=== PATIENT | male | born 1980 | race Caucasian/White ===

== ENCOUNTER 2016-07-19 10:10 | Observation (INO) | payer OTHER ==
--- NOTE | 2016-07-19 10:24 | EDPHY ---
[id number] Exam Limitations: No limitations - Personal History Current Tetanus/Diphtheria Vaccine: Unsure Current Tetanus Diphtheria and Acellular Pertussis (TDAP): Unsure - Medical/Surgical History Hx Asthma: No Hx Chronic Respiratory Disease: No Hx Diabetes: No Hx Cardiac Disease: No Hx Renal Disease: No Hx Cirrhosis: No Hx Alcoholism: No Hx HIV/AIDS: No Hx Splenectomy or Spleen Trauma: No Other PMH: denies. finished antbx for uri one week ago - Social History Smoking Status: Never smoked Time Seen by Provider: 07/19/16 10:16 HPI/ROS: CHIEF COMPLAINT: cough, shortness of breath HISTORY OF PRESENT ILLNESS: 36-year-old male presents to the emergency department sent by his primary care doctor for oxygen saturations of 88%. Patient has had a cold with cough for 6 weeks. He was started on an albuterol inhaler 6 weeks ago, did not improve his symptoms though he was on a 10 day course of cefdinir which he finished 5 days ago. Patient reports that this did not either, he reports his cough is gone from a dry cough to a moist cough, he reports nasal congestion, mild sore throat and ear pain. Patient reports shortness of breath with exertion. Intermittent subjective fevers and chills at the beginning of this illness, he reports no fevers recently. He denies nausea, vomiting or diarrhea. REVIEW OF SYSTEMS: A comprehensive 10 point review of systems is otherwise negative aside from elements mentioned in the history of present illness. (Kerry Melendrez) - Physical Exam Exam: Physical Exam Gen: Alert and Oriented, NAD HEENT: PERRL, moist mucous membranes, bilateral TMs normal, nasal turbinates with erythema, posterior pharynx with mild erythema, no exudate NECK: no meningismus CV: regular rate and regular rhythm PULM: CTAB, no wheezes ABDOMEN: soft, non tender to palpation, BS present BACK: No CVA tenderness NEURO: Neurologically grossly intact EXTREMITIES: normal appearing SKIN: no rash or break in skin on exposed skin PSYCH: answers questions appropriately. (Kerry Melendrez) Constitutional: Initial Vital Signs Temperature (C) 36.9 C 07/19/16 10:15 Heart Rate 81 07/19/16 10:15 Respiratory Rate 16 07/19/16 10:15 Blood Pressure 136/80 H 07/19/16 10:15 O2 Sat (%) 91 L 07/19/16 10:15 O2 Delivery Mode Room Air Allergies/Adverse Reactions: No Known Allergies Allergy (Unverified 07/19/16 10:15) Home Medications: Medication Instructions Recorded NK [No Known Home Meds] 07/19/16 Medical Decision Making - Diagnostics Imaging: Chest x-ray independently reviewed by me- Impression: Mild peribronchial thickening suggesting airways disease/ bronchitis. Dictated By: Kenan Avelar MD (Kerry Melendrez) ED Course/Re-evaluation: 36-year-old male presents with a cough x6 weeks, finished a 10 day course of cefdinir 5 days ago[address] Seen by Dr. Diaz today with oxygen saturations of 88% , she sent him here for a further workup. Chest x-ray and influenza obtained, chest x-ray shows a bronchitis with mild peribronchial thickening, no evidence of infiltrates, influenza is negative. Patient is given a duo nebulizer treatment and 60 mg of prednisone p.o. plan to send him home with a prednisone and Zithromax. 1245pm- ambulatory room air oxygen saturations 87 88%. Patient admitted to the hospitalist for hypoxemia. D-dimer ordered though I think this is unlikely a pulmonary embolism. (Kerry Melendrez) Differential Diagnosis: Diagnosis considered but not limited to bronchitis, pneumonia, COPD, pulmonary embolism, other viral illness. (Kerry Melendrez) Other Provider: This patient was evaluated and managed by the nurse practitioner. I have reviewed the chart and agree with the findings and plan of care as documented. ( Destiney Severino) - Data Points Laboratory Results: 07/19/16 10:52 Influenza Typ A,B (DFA) NEGATIVE FOR FLU (NEGATIVE) Medications Given: Discontinued Medications Albuterol/Ipratropium (Duoneb) 3 ml IH EDNOW ONE Stop: 07/19/16 11:43 Last Admin: 07/19/16 12:00 Dose: 3 ml Prednisone (Prednisone) 60 mg PO EDNOW ONE Stop: 07/19/16 12:07 Last Admin: 07/19/16 12:10 Dose: 60 mg Departure - Departure Disposition: [facility] Inpatient Acute Clinical Impression: Hypoxemia Condition: Good
--- NOTE | 2016-07-19 10:42 | DX ---
PA and Lateral Chest History: Shortness of breath and productive cough. Comparison: None available. Findings: There is mild peribronchial thickening without focal consolidation. There is no pneumothora x or pleural effusion. The heart and pulmonary vasculature are normal. The bones are normal. Impression: Mild peribronchial thickening suggesting airways disease/bronchitis.
[2016-07-19] MEDS ORDERED: IPRATROPIUM/ALBUTEROL 3 ML DEYVIAL IH ONE (11:42)
[2016-07-19] MEDS ORDERED: predniSONE 20 MG TAB PO ONE (12:06)
[2016-07-19] MEDS ORDERED: ACETAMINOPHEN 325 MG TAB PO PRN (13:37)
[2016-07-19] MEDS ORDERED: ONDANSETRON DISINTEGRATING 4 MG TAB PO PRN (13:37)
[2016-07-19] MEDS ORDERED: TEMAZEPAM 15 MG CAP PO PRN (13:37)
[2016-07-19] MEDS ORDERED: ONDANSETRON 4 MG/2 ML VIAL IVP PRN (13:37)
[2016-07-19] MEDS ORDERED: IPRATROPIUM/ALBUTEROL 3 ML DEYVIAL IH PRN (13:40)
[2016-07-19] MEDS ORDERED: methylPREDNISolone SOD SUCC 125 MG/2 ML VIAL IVP ONE ×2 (15:15→18:00)
[2016-07-19 15:27] LABS: % IMMATURE GRANULYOCYTES 0.4 % (0.0-1.1); ABSOLUTE IMMATURE GRANULOCYTES 0.02 10^3/uL (0.00-0.10); ADD DIFF? NO; ADD MORPH? NO; ADD SCAN? NO; ATYPICAL LYMPHOCYTE FLAG 60 (0-99); FRAGMENT RBC FLAG 0 (0-99); HEMATOCRIT 49.1 % (40.0-51.0); LEFT SHIFT FLG 10 (0-99); LIPEMIA HEMOLYSIS FLAG 90 (0-99); MEAN CELL HEMOGLOBIN 30.5 pg (27.9-34.1); MEAN CELL HEMOGLOBIN CONCENTR. 34.6 g/dL (32.4-36.7); MEAN PLATELET VOLUME 10.2 fL (8.7-11.7); PLATELET CLUMPS FLAG 10 (0-99); PLATELET COUNT 243 10^3/uL (150-400); RED BLOOD CELL COUNT 5.58 10^6/uL (4.40-6.38); RED CELL DISTRIBUTION WIDTH 11.8 % (11.5-15.2)
--- NOTE | 2016-07-19 16:04 | GHP ---
[f rep st] HISTORY AND PHYSICAL DATE OF ADMISSION: 07/19/2016 CHIEF COMPLAINT: Shortness of breath and cough. HISTORY OF PRESENT ILLNESS: The patient is a 36-year-old male with no significant past medical histo ry who is being admitted for hypoxia, shortness of breath, and cough. He reports onset of symptoms 6 weeks ago. He developed a cough and URI symptoms at that time. At first, he had noted a nonproduct caren cough, but most recently this has become productive. He initially had some fever and chills, but this has resolved. He denies any rhinorrhea, dysuria, hematochezia, melena, chest pain, palpitation s, or lightheadedness. REVIEW OF SYSTEMS: As per HPI. A complete 10-point review of systems was obtained and is negative e xcept for what is dictated. PAST MEDICAL HISTORY: Unremarkable. SURGICAL HISTORY: Unremarkable. SOCIAL HISTORY: He was a never smoker. He denies any significant alcohol intake. 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 Up until 6 weeks ago, he was exercising regularly and feeling well w ith that. FAMILY HISTORY: Negative for heart or lung disease. OUTPATIENT MEDICATIONS: None. ALLERGIES: No known drug allergies. PHYSICAL EXAM: VITAL SIGNS: BP of 117/80, heart rate 94, respirations 14, O2 saturation 92% on 2 L/ min. Temp of 98.1 degrees Fahrenheit. GENERAL: He is a very pleasant male in no apparent distress. HEENT: Head is normocephalic, atraumatic. EYES: COLBY without scleral icterus. NECK: Supple wit h no JVD. HEART: Regular rate and rhythm with no rubs, gallops, or murmurs. LUNGS: Diminished wit hout any crackles auscultated. Mild wheezing. ABDOMEN: Soft, nontender, nondistended. : No Fol ey present. SKIN: Warm and dry. NEURO: No focal deficits detected. PSYCH: Normal mood and affec t. LABORATORY DATA: D-dimer is negative. Influenza DFA is negative. IMAGING: Chest x-ray reviewed shows mild peribronchial thickening. IMPRESSION AND PLAN: The patient is a 36-year-old male who is being admitted for hypoxia. 1. Hypoxia. He is saturates at 88% with ambulation. He will be treated with one-time dose of IV st eroids and then we will continue p.o. steroids. He will be treated with nebulized treatments as well . 2. Length of stay. He is being admitted as OBS status. Should he have any further testing or treat ment, he will be changed to inpatient. 3. Deep venous thrombosis prophylaxis. He is considered low risk. We will plan on early ambulation . /[id number]/MODL
[2016-07-19 16:55] LABS: ANION GAP 14 mEq/L (8-16); CARBON DIOXIDE 22 mEq/l (22-31); CHLORIDE 104 mEq/L (97-110); GLOMERULAR FILTRATION RATE > 60; GLUCOSE 99 mg/dL (70-100); SODIUM 140 mEq/L (134-144)
[2016-07-20 05:41] LABS: % IMMATURE GRANULYOCYTES 0.3 % (0.0-1.1); ABSOLUTE IMMATURE GRANULOCYTES 0.03 10^3/uL (0.00-0.10); ADD DIFF? NO; ADD MORPH? NO; ADD SCAN? NO; ATYPICAL LYMPHOCYTE FLAG 20 (0-99); FRAGMENT RBC FLAG 0 (0-99); HEMATOCRIT 47.2 % (40.0-51.0); HEMOGLOBIN 16.7 g/dL (13.7-17.5); LEFT SHIFT FLG 10 (0-99); LIPEMIA HEMOLYSIS FLAG 90 (0-99); MEAN CELL HEMOGLOBIN 30.3 pg (27.9-34.1); MEAN CELL HEMOGLOBIN CONCENTR. 35.4 g/dL (32.4-36.7); MEAN CELL VOLUME 85.7 fL (81.5-99.8); MEAN PLATELET VOLUME 9.8 fL (8.7-11.7); PLATELET CLUMPS FLAG 0 (0-99); PLATELET COUNT 254 10^3/uL (150-400); RED BLOOD CELL COUNT 5.51 10^6/uL (4.40-6.38); RED CELL DISTRIBUTION WIDTH 11.6 % (11.5-15.2)
[2016-07-20 05:53] LABS: ANION GAP 12 mEq/L (8-16); CALCIUM 9.4 mg/dL (8.5-10.4); CARBON DIOXIDE 21 mEq/l (22-31); CHLORIDE 108 mEq/L (97-110); CREATININE 0.7 mg/dL (0.7-1.3); GLOMERULAR FILTRATION RATE > 60; GLUCOSE 140 mg/dL (70-100); POTASSIUM 4.8 mEq/L (3.5-5.2); SODIUM 141 mEq/L (134-144)
[2016-07-20] MEDS ORDERED: predniSONE 20 MG TAB PO SCH (09:00)
[2016-07-20 11:05] VITALS: BP 98/74; PULSE 89; RESP 18; TEMP 98; O2SAT 93
== END 2016-07-20 11:10 | disposition home or self-care (01) ==
LOC: F1N 14:25
PROVIDERS: ADMIT Internal Medicine; ATTEND Hospitalist
DX: R09.02 Hypoxemia (principal)
CPT/HCPCS: 71020; 99285; G0378

== ENCOUNTER 2016-08-15 11:24 | Inpatient (IN) | payer OTHER ==
--- NOTE | 2016-08-15 12:12 | EDPHY ---
H & P Smoking Status: Never smoked Time Seen by Provider: 08/15/16 11:42 HPI/ROS: CHIEF COMPLAINT: Dyspnea, cough HISTORY OF PRESENT ILLNESS: 36-year-old male presents to the emergency department by private vehicle with his complaining of ongoing dyspnea and cough. He also notices pain in his chest, especially pleuritic chest pain. Patient states that he began feeling sick before [place], nearly 2 months ago. He was admitted to [facility] July 19, 2016 for hypoxia. At that time he had an O2 saturation of 84%. He was admitted to the hospital and was discharged with oral antibiotics and albuterol inhaler. The patient felt like his shortness of breath slightly improved although it still continued. Today he woke up feeling very fever alvares chilled with continued short of breath and was brought to the emergency department for re-evaluation. Patient denies calf pain or swelling. Denies recent travel. Denies any known ill contacts. Denies headaches. Denies abdominal pain no vomiting. REVIEW OF SYSTEMS: Constitutional: No fever, no chills. Eyes: No double or blurry vision. ENT: No sore throat. Respiratory: Cough, shortness of breath Cardiovascular: chest pain Gastrointestinal: No abdominal pain, vomiting or diarrhea. Genitourinary: No dysuria. Musculoskeletal: No neck or back pain. Skin: No rashes. Neurological: No headache. (Chelsie Capellan) Past Medical/Surgical History: Negative, nonsmoker (Chelsie Capellan) Social History: and lives in [place] [address]. He works at [employer] high school (Chelsie Capellan) Physical Exam: General Appearance: Alert, no distress. 84% on room air, temperature 37.1, heart rate 119 Eyes: Pupils equal and round. Extraocular motions are all intact. ENT: Mouth: Mucous membranes moist. Respiratory: No wheezing, rhonchi, or rales, lungs are clear to auscultation. No respiratory distress. Cardiovascular: Regular rate and rhythm. Gastrointestinal: Abdomen is soft and nontender, no masses, no rebound or guarding, bowel sounds normal. Neurological: Alert and oriented x 3, cranial nerves II through XII grossly intact Skin: Warm and dry, no rashes. Musculoskeletal: Nontender to palpate along the cervical, thoracic or lumbar spine. Neck is supple. Extremities: Full range of motion and no peripheral edema. No calf pain or swelling with palpation. Psychiatric: Patient is oriented X 3, there is no agitation. (Chelsie Capellan) Constitutional: Initial Vital Signs Temperature (C) 37.1 C 08/15/16 11:37 Heart Rate 119 H 08/15/16 11:37 Respiratory Rate 22 H 08/15/16 11:37 Blood Pressure 119/74 08/15/16 11:37 O2 Sat (%) 84 L 08/15/16 11:37 O2 Delivery Mode Nasal Cannula O2 (L/minute) 4 Allergies/Adverse Reactions: levofloxacin [From Levaquin] Allergy (Verified 08/15/16 14:33) Rash Home Medications: Medication Instructions Recorded NK [No Known Home Meds] 08/15/16 Medical Decision Making - Diagnostics Imaging: CT pulmonary angiogram reveals no obvious pulmonary embolism however there is a large amount of motion artifact noted. There is diffuse ground-glass appearance that is diffusely noted throughout the lungs. This is reported to me by Dr. misa Jiménez. (Chelsie Capellan) ED Course/Re-evaluation: 36-year-old male presents to the emergency department with shortness of breath and cough. Patient also feels pleuritic chest pain. He had an O2 saturation of 84% on room air. Patient was placed on 4 L of nasal cannula oxygen and O2 sat is now at 92%. [place] [id number]. His chemistries are unremarkable. Influenza rapid test was negative. Given the patient's ongoing hypoxia as well as pleuritic chest pain, I recommended CT pulmonary angiogram to rule out pulmonary embolism. The pros and cons were discussed with the patient including radiation exposure and the patient agrees. CT pulmonary angiogram reveals no obvious pulmonary embolism however there is a large amount of motion artifact noted. There is diffuse ground-glass appearance that is diffusely noted throughout the lungs. The patient will be admitted to the hospital with hypoxia. Repeat chest x-ray has been ordered to compare to previous study from July 19, 2016. Bilateral Doppler ultrasound of the lower extremities has also been ordered to rule out DVT since the CT pulmonary angiogram was suboptimal given motion artifact. The case was discussed with Dr. Salas will admit this patient to the hospital to the medical-surgical floor with likely pulmonary consult. (Chelsie Capellan) I did not see this patient while he was in the emergency department. However his care was discussed with the PA while the patient was in the department. I agree with treatment plan and management (Dixon Lind) Differential Diagnosis: Shortness of breath including but not limited to pulmonary infectious process, COPD, asthma, pulmonary embolus and congestive heart failure. (Chelsie Capellan) - Data Points Laboratory Results: Laboratory Results 08/15/16 12:11 08/15/16 12:11 08/15/16 08/15/16 08/15/16 12:35 12:35 12:12 WBC RBC Hgb POC Hgb 17.7 gm/dL H gm/dL (14.5-17.3) Hct POC Hct 52 % H % (42.8-50.6) MCV MCH MCHC RDW Plt Count MPV Neut % (Auto) Lymph % (Auto) Berrien % (Auto) Eos % (Auto) Baso % (Auto) Nucleat RBC Rel Count Absolute Neuts (auto) Absolute Lymphs (auto) Absolute Monos (auto) Absolute Eos (auto) Absolute Basos (auto) Absolute Nucleated RBC Immature Gran % Immature Gran # VBG Lactic Acid POC Sodium 141 mEq/L mEq/L (134-144) Sodium POC Potassium 4.2 mEq/L mEq/L (3.3-5.0) Potassium POC Chloride 101 mEq/L mEq/L (96-108) Chloride Carbon Dioxide Anion Gap POC BUN 23 mg/dL mg/dL (7-23) BUN Creatinine POC Creatinine 0.9 mg/dL mg/dL (0.8-1.5) Estimated GFR Glucose POC Glucose 102 mg/dL H mg/dL (70-100) Calcium Influenza Typ A,B (DFA) NEGATIVE FOR FLU (NEGATIVE) Influenza A & B (PCR) Pending 08/15/16 08/15/16 08/15/16 12:11 12:11 12:10 WBC 10.27 10^3/uL H 10^3/uL (3.80-9.50) RBC 5.84 10^6/uL 10^6/uL (4.40-6.38) Hgb 17.4 g/dL g/dL (13.7-17.5) POC Hgb Hct 49.3 % % (40.0-51.0) POC Hct MCV 84.4 fL fL (81.5-99.8) MCH 29.8 pg pg (27.9-34.1) MCHC 35.3 g/dL g/dL (32.4-36.7) RDW 12.1 % % (11.5-15.2) Plt Count 233 10^3/uL 10^3/uL (150-400) MPV 9.7 fL fL (8.7-11.7) Neut % (Auto) 87.2 % H % (39.3-74.2) Lymph % (Auto) 6.6 % L % (15.0-45.0) Berrien % (Auto) 4.9 % % (4.5-13.0) Eos % (Auto) 0.0 % L % (0.6-7.6) Baso % (Auto) 0.5 % % (0.3-1.7) Nucleat RBC Rel Count 0.0 % % (0.0-0.2) Absolute Neuts (auto) 8.96 10^3/uL H 10^3/uL (1.70-6.50) Absolute Lymphs (auto) 0.68 10^3/uL L 10^3/uL (1.00-3.00) Absolute Monos (auto) 0.50 10^3/uL 10^3/uL (0.30-0.80) Absolute Eos (auto) 0.00 10^3/uL L 10^3/uL (0.03-0.40) Absolute Basos (auto) 0.05 10^3/uL 10^3/uL (0.02-0.10) Absolute Nucleated RBC 0.00 10^3/uL 10^3/uL (0-0.01) Immature Gran % 0.8 % % (0.0-1.1) Immature Gran # 0.08 10^3/uL 10^3/uL (0.00-0.10) VBG Lactic Acid 1.9 mmol/L mmol/L (0.7-2.1) POC Sodium Sodium 140 mEq/L mEq/L (134-144) POC Potassium Potassium 4.6 mEq/L mEq/L (3.5-5.2) POC Chloride Chloride 103 mEq/L mEq/L (97-110) Carbon Dioxide 24 mEq/l mEq/l (22-31) Anion Gap 13 mEq/L mEq/L (8-16) POC BUN BUN 16 mg/dL mg/dL (7-23) Creatinine 0.9 mg/dL mg/dL (0.7-1.3) POC Creatinine Estimated GFR > 60 Glucose 95 mg/dL mg/dL (70-100) POC Glucose Calcium 9.6 mg/dL mg/dL (8.5-10.4) Influenza Typ A,B (DFA) Influenza A & B (PCR) Medications Given: Discontinued Medications Sodium Chloride (Ns) 1,000 mls @ 0 mls/hr IV ONCE ONE PRN Reason: Wide Open Stop: 08/15/16 12:37 Last Admin: 08/15/16 12:57 Dose: 1,000 mls Point of Care Test Results: 08/15/16 12:12 POC Sodium 141 POC Potassium 4.2 POC Chloride 101 POC BUN 23 POC Creatinine 0.9 POC Glucose 102 H Departure - Departure Disposition: [facility] Inpatient Acute Clinical Impression: Hypoxia Condition: Good
[2016-08-15 12:31] LABS: % IMMATURE GRANULYOCYTES 0.8 % (0.0-1.1); ABSOLUTE IMMATURE GRANULOCYTES 0.08 10^3/uL (0.00-0.10); ADD DIFF? NO; ADD MORPH? NO; ADD SCAN? NO; ATYPICAL LYMPHOCYTE FLAG 0 (0-99); FRAGMENT RBC FLAG 0 (0-99); HEMATOCRIT 49.3 % (40.0-51.0); HEMOGLOBIN 17.4 g/dL (13.7-17.5); LEFT SHIFT FLG 30 (0-99); LIPEMIA HEMOLYSIS FLAG 90 (0-99); MEAN CELL HEMOGLOBIN 29.8 pg (27.9-34.1); MEAN CELL HEMOGLOBIN CONCENTR. 35.3 g/dL (32.4-36.7); MEAN CELL VOLUME 84.4 fL (81.5-99.8); MEAN PLATELET VOLUME 9.7 fL (8.7-11.7); PLATELET CLUMPS FLAG 0 (0-99); PLATELET COUNT 233 10^3/uL (150-400); RED BLOOD CELL COUNT 5.84 10^6/uL (4.40-6.38); RED CELL DISTRIBUTION WIDTH 12.1 % (11.5-15.2)
[2016-08-15] MEDS ORDERED: NS 1,000 ML IV ONE (12:36)
[2016-08-15 13:02] LABS: ANION GAP 13 mEq/L (8-16); CALCIUM 9.6 mg/dL (8.5-10.4); CARBON DIOXIDE 24 mEq/l (22-31); CHLORIDE 103 mEq/L (97-110); CREATININE 0.9 mg/dL (0.7-1.3); GLOMERULAR FILTRATION RATE > 60; GLUCOSE 95 mg/dL (70-100); POTASSIUM 4.6 mEq/L (3.5-5.2); SODIUM 140 mEq/L (134-144)
[2016-08-15] MEDS ORDERED: IOPAMIDOL (ISOVUE 370) 100 ML BTL IV ONE (13:09)
[2016-08-15] MEDS ORDERED: ACETAMINOPHEN 500 MG TAB ONE (15:03)
[2016-08-15] MEDS ORDERED: ACETAMINOPHEN 500 MG TAB PO ONE (15:12)
[2016-08-15] MEDS ORDERED: ONDANSETRON 4 MG/2 ML VIAL IVP PRN (16:33)
[2016-08-15] MEDS ORDERED: ONDANSETRON DISINTEGRATING 4 MG TAB PO PRN (16:33)
[2016-08-15] MEDS ORDERED: ACETAMINOPHEN 325 MG TAB PO PRN (16:33)
--- NOTE | 2016-08-15 17:12 | GHP ---
[f rep st] HISTORY AND PHYSICAL DATE OF ADMISSION: 08/15/2016 CHIEF COMPLAINT: Shortness of breath. HISTORY OF PRESENT ILLNESS: This is a 36-year-old male who has no previous past medical history. Rosa Isela roa states that in mid May he started noticing that he felt short of breath. Playing basketball. About 3 days later he started having mostly dry cough. This continued through June and then he felt like he got respiratory illness from his daughter and notes and was admitted for bronchitis. He was given antibiotics and steroids. He did have a previous course of antibiotics which did not h elp. Also, albuterol did not help. He seemed to improve dramatically with steroids and was actuall y back to normal about a week later. This continued until about a couple weeks ago when he started developing shortness of breath as before. This time, however, he has a little bit more chest pressur e. He also has cough that is more productive and now over the last several days had some fevers and chills. He continues to feel short of breath. No lower extremity edema. He has had no travel. Rosa Isela is says that they did have black mold in the house that they took care of themselves several ye ars ago. Does live [place] in [place] [address] [place]. REVIEW OF SYSTEMS: A 10-point review of systems done and other than above was negative. PAST MEDICAL HISTORY: None. MEDICATIONS: None. SOCIAL HISTORY: No smoking. 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 He is an d has a one and one-half year old daughter. No recent travel other than [employer]. FAMILY HISTORY: No history of autoimmune disease. PHYSICAL EXAM: VITAL SIGNS: Afebrile, blood pressure is 100/54, oxygen saturation 84% on room air, is 90% on 4 L. GENERAL: The patient is well developed, in no apparent distress. HEENT: Nonicter ic sclerae. Extraocular movements intact. Moist mucous membranes. NECK: Supple. No thyromegaly. LUNGS: Good effort. Some decreased breath sounds but no crackles or rhonchi. CARDIOVASCULAR: R egular rate and rhythm. No murmurs, gallops. ABDOMEN: Positive bowel sounds. Soft, nontender, no ndistended. No hepatosplenomegaly. EXTREMITIES: No clubbing, cyanosis, or edema. SKIN: Without rash, intact. NEUROLOGIC: Alert and oriented x3. Moving 4 extremities equally. PSYCH: Normal mood and affect. LABORATORY DATA: White count slightly elevated at 10, hemoglobin 17, platelets 233. Chemistry is n ormal. Chest x-ray personally reviewed and interpreted shows diffuse ground-glass opacities. CT scan of the chest showed no central pulmonary embolism and ground-glass opacities in both lungs. ASSESSMENT: This is a 36-year-old male presenting with 2 months of shortness of breath and now with ground-glass opacities. PLAN: Shortness of breath, hypoxia and ground-glass opacities. This case is discussed with pulmono logy. They were considering bronchoscopy in the morning. At this time, I am less likely to think t his is infectious and rather immune mediated. We will probably hold off on steroids until he sees p ulmonology. /[id number]/MODL
[2016-08-15] MEDS ORDERED: ALBUTEROL 3 ML DEYVIAL IH ONE (18:00)
[2016-08-16] MEDS: ALBUTEROL 3 ML DEYVIAL IH PRN ×2 (04:35→16:54)
[2016-08-16 04:46] LABS: INR 1.15 (0.83-1.16); PROTIME(PATIENT) 14.6 SEC (12.0-15.0)
[2016-08-16 04:53] LABS: % IMMATURE GRANULYOCYTES 0.5 % (0.0-1.1); ABSOLUTE IMMATURE GRANULOCYTES 0.03 10^3/uL (0.00-0.10); ADD DIFF? NO; ADD MORPH? NO; ADD SCAN? NO; ATYPICAL LYMPHOCYTE FLAG 10 (0-99); FRAGMENT RBC FLAG 0 (0-99); HEMATOCRIT 43.6 % (40.0-51.0); HEMOGLOBIN 15.1 g/dL (13.7-17.5); LEFT SHIFT FLG 0 (0-99); LIPEMIA HEMOLYSIS FLAG 90 (0-99); MEAN CELL HEMOGLOBIN 30.1 pg (27.9-34.1); MEAN CELL HEMOGLOBIN CONCENTR. 34.6 g/dL (32.4-36.7); MEAN CELL VOLUME 86.9 fL (81.5-99.8); MEAN PLATELET VOLUME 9.8 fL (8.7-11.7); PLATELET CLUMPS FLAG 0 (0-99); PLATELET COUNT 200 10^3/uL (150-400); RED BLOOD CELL COUNT 5.02 10^6/uL (4.40-6.38); RED CELL DISTRIBUTION WIDTH 12.3 % (11.5-15.2)
--- NOTE | 2016-08-16 13:40 | GCON ---
[f rep st] CONSULTATION CHEST CONSULTATION. DATE OF CONSULTATION: 08/16/2016 REASON FOR CONSULTATION: Respiratory failure. Abnormal CT scan. HISTORY OF PRESENT ILLNESS: The patient is a very pleasant 36-year-old white male without past medi rocio history. He presents with complaints of breathlessness. This first occurred approximately 2 mo nths ago. He began having a dry cough. He was diagnosed with upper respiratory tract infection, wa s begun on steroids and antibiotics. He felt markedly improved. However, this was short lived, and he came back for further care. His cough is mostly nonproductive. There is no fever or night swea ts. No nausea, vomiting, or diarrhea. [place] [address] [place] PAST MEDICAL HISTORY: None. PAST SURGICAL HISTORY: None. ALLERGIES: None to medications. SOCIAL HISTORY: No history of tobacco use. Infrequent alcohol use. 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 He is , has a 1-1/2-year-old daughter. PHYSICAL EXAM: VITAL SIGNS: Blood pressure is 107/62, pulse 86, respirations 14, temperature 36.6, oxygen saturation 93% on 5 L. GENERAL: He is a well-developed, well-nourished, 36-year-old white male who is resting comfortably in no acute distress. HEENT: Eyes COLBY, EOMI. Throat exam is defe rred secondary to oxygen. NECK: Supple. No cervical adenopathy. HEART: Regular rate and rhythm without murmurs, rubs, gallops. LUNGS: Few bibasilar crackles but no wheeze. ABDOMEN: Soft, nont william. Bowel sounds are present in all 4 quadrants. EXTREMITIES: There is no clubbing, cyanosis, or edema. LABORATORIES: White count 5.6, hemoglobin 15, hematocrit 43, platelet count 200. INR is 1.15. Sod ium is 140, potassium 4.6, chloride 103, CO2 is 24, BUN is 16, creatinine 0.9, glucose is 95. Influ aimee A and B are negative. CT scan of the chest shows no evidence of pulmonary embolus. However, t here are nonspecific ground-glass opacifications in both lungs. IMPRESSION: 1. Respiratory failure. 2. Abnormal CT scan with ground-glass opacifications, etiology of which is unclear, however, must t hailey into consideration possible hypersensitivity pneumonitis though cryptogenic organizing pneumonia would be most likely. RECOMMENDATIONS: We will perform fiberoptic bronchoscopy tomorrow with transbronchial biopsies. /[id number]/MODL
[2016-08-16] MEDS ORDERED: BENZONATATE 100 MG CAP PO PRN (14:38)
--- NOTE | 2016-08-16 14:38 | HOSPPROG ---
Hospitalist Progress Note Assessment/Plan: Assessment: 36-year-old male presents with acute hypoxic respiratory failure Plan: 1. Acute hypoxic respiratory failure. Evidenced by SpO2 of 84% on room air plus objective tachypnea plus symptomatic shortness of breath and significantly labored breathing with any level of activity, most likely etiology are his bilateral pulmonary infiltrates currently receiving further workup -continue on 5 L supplemental oxygen -continue on DuoNeb breathing treatments as needed 2. Pulmonary infiltrates. Acute, new problem this provider, further workup indicated. CT imaging demonstrates bilateral ground-glass opacities without pulmonary embolism, personally interpreted, etiology unclear -potential etiologies include hypersensitivity pneumonitis versus cryptogenic organizing pneumonia -discussed with Dr. Morris, he is advised that he will see the patient and most likely perform a bronchoscopy -discussed with Dr. Day, he will evaluate the patient from an infectious disease standpoint -will hold on empiric antibiotics and steroids at this time -influenza PCR negative Diet. Regular, NPO after midnight Prophylaxis. Risk patient, Lovenox 40 Code status. Full Disposition. Anticipated discharge is 08/17/2016, pending further workup as outlined above. Subjective: Patient reports that he gets significantly short of breath with any level of activity if he is not wearing supplemental oxygen Objective: Vital Signs Temp Pulse Resp BP Pulse Ox 36.6 C 86 14 107/62 93 08/16/16 08:00 08/16/16 08:00 08/16/16 08:00 08/16/16 08:00 08/16/16 08:00 Laboratory Results 08/16/16 04:14 08/15/16 08/16/16 08/17/16 05:59 05:59 05:59 Intake Total 450 Balance 450 PT 14.6 SEC (12.0-15.0) 08/16/16 04:14 INR 1.15 (0.83-1.16) 08/16/16 04:14 - Pending Discharge Pending Discharge Within 24 Hours: Yes Pending Discharge Date: 08/17/16 Pending Discharge Time: 11:00 - Physical Exam Constitutional: no apparent distress, appears nourished, not in pain, uncomfortable Cardiovascular: regular rate and rhythym, no murmur, rub, or gallop Respiratory: inspiratory crackles (Bilaterally mid posterior 2nd), No reduced air movement, No expiratory wheeze, No bronchial breath sounds Gastrointestinal: normoactive bowel sounds, soft, non-tender abdomen, no palpable masses Neurologic: AAOx3, sensation intact bilaterally, No weakness Psychiatric: interacting appropriately, not anxious, not encephalopathic, thought process linear ICD10 Worksheet Patient Problems: Problems Problem Status Onset Hypoxemia Acute Hypoxia Acute
[2016-08-16] MEDS ORDERED: guaiFENesin/CODEINE PHOS 10 ML UDCUP PO PRN (14:39)
--- NOTE | 2016-08-16 21:01 | GCON ---
[f rep st] CONSULTATION DATE OF CONSULTATION: 08/16/2016 REFERRING PHYSICIAN: Juan Velasquez MD REASON FOR CONSULTATION: Pneumonitis. HISTORY OF PRESENT ILLNESS: The patient is a 36-year-old male without significant past medical hist ory who first noticed shortness of breath in mid May after playing basketball. His exercise to lerance decreased significantly to the point that he was dyspneic with usual activities. He did not have associated fevers, chills, or night sweats. He did have a cough which was dry in nature. He initially was treated with cefdinir, but this did not lead to any improvement in his symptoms. He w as admitted to [facility] on 07/19/2016, as he was noted to have hypoxemia. At that t julio cesar, he was treated with IV steroids and azithromycin. He continued on oral steroids after hospital discharge, and during the course of his azithromycin and oral steroids, did feel clinically improve d. He was subsequently prescribed levofloxacin to ensure resolution of his clinical presentation, b ut after 2 or 3 days, developed a diffuse rash prompting its discontinuation. The patient felt well for approximately 3 weeks, and now has experience recurrent dry cough, dyspnea and hypoxia. He did have 1 day of low-grade temperature with chills prior to presentation. 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 There is no associated travel. Rosa Isela roa has a pet dog at home, but no other animal exposures. He lives in [place]. He does not have any hobbies that are associated with chemical exposures. There is no marijuana use. He does not h ave any hot tub exposure. Upon repeat presentation, he was noted to have an oxygen saturation of 84 %. CT scan of the chest was performed which shows subtle bilateral ground-glass opacities consisten t with pneumonitis. He has been seen earlier today by Pulmonology with plans for bronchoscopy and t ransbronchial biopsy tomorrow. He is currently off antibiotic and steroid therapy. Influenza by PC R is negative at the time of his current admission and by DFA was negative in June. He has not h ad any skin rash, oral ulcers, or genital ulcers. No myalgias or arthralgias. Given the above findings, I am now asked to assist in his ongoing management. PAST MEDICAL HISTORY: Unremarkable except as above. PAST SURGICAL HISTORY: Unremarkable. CURRENT MEDICATIONS: Albuterol nebs as needed, Tessalon Perles 200 mg p.o. t.i.d. as needed, Robitu ssin AC as needed. ALLERGIES: Levofloxacin, associated with rash. SOCIAL HISTORY: Patient does not smoke. No significant alcohol intake. No drug use. 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 Pet dog at home. No unusual animal ex posures. No HIV risk factors. FAMILY HISTORY: [id number] has had a viral syndrome. PHYSICAL EXAMINATION: VITAL SIGNS: Temperature 36.8, heart rate 87, blood pressure 113/65, respira tory rate 16, oxygen saturation 91% on 5 L. GENERAL: Patient is well nourished, well developed, in no acute distress. He appears nontoxic. HEENT: There is no scleral icterus, conjunctival injecti on, conjunctival petechiae. Oropharynx clear without lesions. Dentition is in fair repair. There is no nasal discharge. There is no tenderness of the frontal, maxillary, or mastoid area. NECK: S upple without lymphadenopathy. There is no palpable thyromegaly. CHEST: Clear to auscultation cruz aterally without adventitious sounds. Respiratory effort is normal. There is intermittent dry coug h. CARDIOVASCULAR: Regular rate and rhythm without murmurs, gallops, or rubs. ABDOMEN: Soft, non tender, nondistended. There is no palpable organomegaly. Bowel sounds are present. MUSCULOSKELETA L: There is no cyanosis, clubbing, or edema. SKIN: No rashes are present. No stigmata of endocar ditis. Skin is warm, dry to touch. LYMPHATICS: No cervical or supraclavicular nodes palpable. NE UROLOGIC: Patient is alert, interacts appropriately with examiner. Cranial nerves 2-12 are grossly intact. Sensation is grossly intact. Muscle tone and bulk are normal. LABORATORY DATA: White blood cell count 5.7, hematocrit 43.6, platelets 200, neutrophils 68%, lymph ocytes 20%. Serum creatinine is 0.9. Venous lactate 1.9. Flu by PCR is negative. Blood cultures x2 sets are pending. CT scan of the chest, as outlined in the History of Present Illness which was reviewed and interpreted by me with Radiology today. Bilateral lower extremity ultrasounds are nega tive for DVT. IMPRESSION: Bilateral pneumonitis characterized by ground-glass opacities: Considerations include both infectious and noninfectious etiologies. Based on the time course and lack of durable response to antibiotic therapy, suspect noninfectious etiologies will be of highest likelihood. Agree that considerations of hypersensitivity, pneumonitis, or organizing pneumonia are all considerations. Vi ral etiology is also possible given his exposure to his [id number] who attends daycare, as well as teaching in a middle/high school. If that is causative, would suggest presentations are distinctly separate which seems less likely. Mycoplasma could also be seen in this setting. RECOMMENDATIONS: 1. Agree with plans for bronchoscopy and transbronchial biopsy. 2. Observe off antibiotics. 3. Check HIV antibody. 4. Check mycoplasma IgM/IgG. Thank you for this consultation. We will continue to follow patient with you. /[id number]/MODL
[2016-08-17 05:25] LABS: % IMMATURE GRANULYOCYTES 0.7 % (0.0-1.1); ABSOLUTE IMMATURE GRANULOCYTES 0.04 10^3/uL (0.00-0.10); ADD DIFF? NO; ADD MORPH? NO; ADD SCAN? NO; ATYPICAL LYMPHOCYTE FLAG 10 (0-99); FRAGMENT RBC FLAG 0 (0-99); HEMATOCRIT 45.5 % (40.0-51.0); HEMOGLOBIN 15.6 g/dL (13.7-17.5); LEFT SHIFT FLG 10 (0-99); LIPEMIA HEMOLYSIS FLAG 90 (0-99); MEAN CELL HEMOGLOBIN 30.1 pg (27.9-34.1); MEAN CELL HEMOGLOBIN CONCENTR. 34.3 g/dL (32.4-36.7); MEAN CELL VOLUME 87.8 fL (81.5-99.8); PLATELET CLUMPS FLAG 0 (0-99); PLATELET COUNT 220 10^3/uL (150-400); RED BLOOD CELL COUNT 5.18 10^6/uL (4.40-6.38); RED CELL DISTRIBUTION WIDTH 12.1 % (11.5-15.2)
[2016-08-17 05:38] LABS: ALANINE AMINOTRANSFERASE 33 IU/L (21-72); ALBUMIN 3.7 g/dL (3.5-5.0); ALKALINE PHOSPHATASE 55 IU/L (38-126); ANION GAP 10 mEq/L (8-16); ASPARTATE AMINOTRANSFERASE 25 IU/L (17-59); BILIRUBIN,TOTAL 0.5 mg/dL (0.1-1.4); CALCIUM 9.2 mg/dL (8.5-10.4); CARBON DIOXIDE 23 mEq/l (22-31); CHLORIDE 106 mEq/L (97-110); CREATININE 0.8 mg/dL (0.7-1.3); GLOMERULAR FILTRATION RATE > 60; GLUCOSE 85 mg/dL (70-100); POTASSIUM 4.7 mEq/L (3.5-5.2); SODIUM 139 mEq/L (134-144); TOTAL PROTEIN 6.7 g/dL (6.3-8.2)
[2016-08-17] MEDS: ALBUTEROL 3 ML DEYVIAL IH PRN (08:35)
[2016-08-17] MEDS ORDERED: ALBUTEROL 3 ML DEYVIAL ONE (09:52)
[2016-08-17] MEDS ORDERED: fentaNYL 100 MCG/2 ML INJ ONE (09:53)
[2016-08-17] MEDS ORDERED: LIDOCAINE 1% 30 ML SDV ONE (09:53)
[2016-08-17] MEDS ORDERED: MIDAZOLAM 2 MG/2 ML VIAL ONE (09:53)
[2016-08-17] MEDS ORDERED: LIDOCAINE 2% JELLY 5 ML TUBE ONE (09:54)
[2016-08-17] MEDS ORDERED: LIDOCAINE HCL 4% TOPICAL SOLN 50ML ONE (09:54)
--- NOTE | 2016-08-17 11:10 | SOAPPROG ---
SOAP Progress Note Assessment/Plan: Assessment/Plan: * Resp failure-stable on current fio2 * ILD-query RESIDENT SURGEON vs other -bronch today Subjective: Comfortable. Still with cough Objective: Vital Signs Temp Pulse Resp BP Pulse Ox 36.6 C 106 H 18 104/57 L 93 08/17/16 08:00 08/17/16 08:25 08/17/16 08:25 08/17/16 08:00 08/17/16 08:25 Laboratory Results 08/17/16 04:30 08/17/16 04:30 08/16/16 08/17/16 08/18/16 05:59 05:59 05:59 Intake Total 450 Balance 450 PT 14.6 SEC (12.0-15.0) 08/16/16 04:14 INR 1.15 (0.83-1.16) 08/16/16 04:14 Physical Exam - Physical Exam General Appearance: WD/WN, alert, no apparent distress EENT: PERRL/EOMI, normal ENT inspection, pharynx normal, TMs normal Neck: non-tender, full range of motion, supple, normal inspection Respiratory: crackles (few), No respiratory distress, No wheezing Cardiac/Chest: normal peripheral pulses, regular rate, rhythm Peripheral Pulses: 2+: carotid (R), carotid (L), femoral (R), femoral (L), dorsalis-pedis (R), dorsalis-pedis (L) Abdomen: normal bowel sounds, non-tender, soft Male Genitalia: deferred Rectal: deferred Skin: normal color, warm/dry ICD10 Worksheet Patient Problems: Problems Problem Status Onset Hypoxia Acute Hypoxemia Acute
--- NOTE | 2016-08-17 12:17 | GPN ---
[f rep st] PROCEDURE NOTE PROCEDURE: Fiberoptic bronchoscopy. INDICATION: Interstitial lung disease. ANESTHESIA GIVEN: He received Versed 6 mg, fentanyl 150 mcg. He also received 1% lidocaine topical ly, 4% lidocaine nebulized. DESCRIPTION OF PROCEDURE: Procedure was performed in the endoscopy suite with continuous pulse ox, EKG, blood pressure monitoring. He was in a negative airflow room. N95 masks were used by all duri ng the procedure. Bronchoscope was entered orally. Vocal cords were visualized and opposed easily. Trachea and willian were visualized and showed no endobronchial lesion, normal-appearing mucosa. Bronchoscope was ente red in the left lung. Left upper lobe, lingula, left lower lobe, including subsegments, were subseq uently visualized and showed no endobronchial lesions and normal-appearing mucosa. Bronchoscope in the right lung. Right upper lobe, right middle lobe, right lower lobe, including subsegments, were subsequently visualized and showed no endobronchial lesions and normal-appearing mucosa. Via fluoro scopy, transbronchial biopsies taken from the right lower lobe. This was sent for pathology. Bronc hoalveolar lavage was taken from the right lower lobe. This was sent for C and S, AFB, fungal cultu res, and cytology. Patient tolerated the procedure well. There were no apparent complications. Portable chest x-ray h as been called for. /[id number]/MODL
--- NOTE | 2016-08-17 13:15 | HOSPPROG ---
Hospitalist Progress Note Assessment/Plan: Assessment: 36-year-old male presents with acute hypoxic respiratory failure Plan: 1. Acute hypoxic respiratory failure. Evidenced by SpO2 of 84% on room air plus objective tachypnea plus symptomatic shortness of breath and significantly labored breathing with any level of activity, most likely etiology are his bilateral pulmonary infiltrates currently receiving further workup -continue on 5 L supplemental oxygen, wean as bartolo -continue on DuoNeb breathing treatments as needed 2. Suspected interstitial lung disease. 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 ILD -discussed with Dr. Morris, reports that bronch was fairly benign and biopsies taken, recommends initiating empiric steroids at this time -given that a non-diagnostic biopsy would warrant VATs, will require path review and discussion in AM to determine whether we can allow him to discharge and f/u in a week for results vs. proceed to VATs now -Myco and HIV tests pending -influenza PCR negative Diet. Regular Prophylaxis. Risk patient, Lovenox 40 Code status. Full Disposition. Anticipated discharge is 08/18/2016, pending initial path review and possible VATs if non-diagnostic Subjective: Reports exertional shortness of breath, having bowel movements Objective: Vital Signs Temp Pulse Resp BP Pulse Ox 36.9 C 104 H 18 111/77 93 08/17/16 12:02 08/17/16 12:02 08/17/16 12:02 08/17/16 12:02 08/17/16 12:02 Laboratory Results 08/17/16 04:30 08/17/16 04:30 08/16/16 08/17/16 08/18/16 05:59 05:59 05:59 Intake Total 450 Balance 450 PT 14.6 SEC (12.0-15.0) 08/16/16 04:14 INR 1.15 (0.83-1.16) 08/16/16 04:14 - Time Spent With Patient Time Spent with Patient: greater than 35 minutes Time Spent with Patient: Greater than 35 minutes spent on this patients care, greater than 50% of time spent counseling, educating, and coordinating care regarding the above mentioned plan. - Pending Discharge Pending Discharge Within 24 Hours: Yes Pending Discharge Date: 08/18/16 Pending Discharge Time: 11:00 - Physical Exam Constitutional: no apparent distress, appears nourished, not in pain Cardiovascular: No edema Respiratory: inspiratory crackles (Bilateral mid posterior 2nd), No reduced air movement, No expiratory wheeze, No bronchial breath sounds Gastrointestinal: normoactive bowel sounds, soft, non-tender abdomen, no palpable masses Neurologic: AAOx3, sensation intact bilaterally Psychiatric: interacting appropriately, not anxious, not encephalopathic, thought process linear ICD10 Worksheet Patient Problems: Problems Problem Status Onset Hypoxemia Acute Hypoxia Acute
[2016-08-17] MEDS: predniSONE 20 MG TAB PO SCH (13:20)
[2016-08-17 16:22] VITALS: RESP 16
[2016-08-18 08:07] VITALS: BP 113/72; PULSE 80; TEMP 98.5; O2SAT 90
[2016-08-18] MEDS: predniSONE 20 MG TAB PO SCH (10:09)
--- NOTE | 2016-08-18 13:49 | PDDCSUM ---
Discharge Summary Discharge Summary: DISCHARGE SUMMARY FOLLOW-UP ITEMS: Follow up final pathology report, follow-up mycoplasma result DATE OF ADMISSION: 08/15/16 DATE OF DISCHARGE: 08/18/2016 DISCHARGE DIAGNOSES: 1. Acute hypoxic respiratory failure 2. Suspected hypersensitivity pneumonitis CONSULTATIONS: Pulmonary, Infectious Disease PROCEDURES / IMAGING: Bronchoscopy, CT chest CHIEF COMPLAINT: Shortness of breath SUBJECTIVE: Shortness of breath improved with nebulizer treatments and oxygen PHYSICAL EXAM ON DISCHARGE: SpO2 treatment 80 45% on room air at rest, systolic blood pressure 1/10, heart rate 80, afebrile overnight, inspiratory crackles bilaterally, no expiratory wheezes LABS ON DISCHARGE: HIV test negative HOSPITAL COURSE BY PROBLEM: 1. Acute hypoxic respiratory failure. Evidenced by an SpO2 of 84% on room air plus objective tachypnea plus symptomatic shortness of breath and significantly labored breathing with any level of activity. Is most likely secondary to a suspected hypersensitivity pneumonitis which will be further discussed below. Patient required up to 5 L nasal cannula oxygen and this has been weaned down to 3 L at time of discharge. Patient will require home oxygen. 2. Suspected hypersensitivity pneumonitis. Based on CT imaging demonstrating bilateral ground-glass opacities with out pulmonary embolism and bronchoscopy demonstrating clear airways without any signs of infection. Biopsy demonstrating hypersensitivity pneumonitis versus cryptogenic organizing pneumonia. I have discussed patient's biopsy results with our pathology team and they have reported that the sample seems sufficient and that an open lung biopsy does not seem indicated at this time. The patient will be continued on prednisone 60 mg daily will follow up with Dr. Morris to determine the exact duration and long-term dosage. Patient will also continue to receive as needed albuterol nebulizer treatments as he experiences significant improvement with the use of this treatment modality. Infectious Disease consulted in this patient's care and it seems unlikely that the patient has an ongoing infection. DISCHARGE MEDICATIONS: Please see official discharge medication reconciliation sheet in chart , prednisone 60 mg daily, as needed albuterol nebulizer, Tessalon Perles as needed. DISCHARGE INSTRUCTIONS: Please follow up with Dr. Morris in 1 week. TIME SPENT: Greater than 30 minutes were spent on direct patient care, as well as discharge planning and preparation.
--- NOTE | 2016-08-18 18:25 | PCMIDPN ---
Assessment/Plan: Assessment: Bilateral pneumonitis. This has been situation that has been ongoing since May. Resolved briefly for 3 weeks with steroids. Transbronchial biopsy yesterday was reviewed with pathology. Small non caseating granulomas and areas of possible organizing pneumonitis. The differential diagnosis includes sarcoidosis and cryptogenic organizing pneumonia. After discussion with pathology and pulmonary discussed with patient about likely need for open lung biopsy. Given that this does not look infectious agree with continuing to keep him off antibiotics. Plan: 1. No antibiotics. 2. Likely will need open lung biopsy. Discussion whether this can be done during the stay or the patient should return for open lung biopsy at a later date. Subjective: Patient is resting in his hospital bed. He is accompanied by family in the room. No new complaint. Objective: No antibiotics Vital Signs Temp Pulse Resp BP Pulse Ox 36.9 C 80 16 113/72 90 L 08/18/16 08:00 08/18/16 08:00 08/18/16 08:00 08/18/16 08:00 08/18/16 08:00 Microbiology 08/17/16 10:55 Mycobacterial Smear (ARIANA) - Final Lung Right Lower Lobe - Bronchial Washings 08/17/16 10:55 Gram Stain - Final Lung Right Lower Lobe - Bronchial Washings Laboratory Results 08/18/16 04:20 08/17/16 04:30 - Physical Exam General Appearance: WD/WN, alert, no apparent distress, non-toxic Respiratory: lungs clear, normal breath sounds, No respiratory distress Cardiac/Chest: regular rate, rhythm, No tachycardia Skin: normal color, warm/dry, No rash Neuro/Psych: alert, normal mood/affect, oriented x 3 ICD10 Worksheet Patient Problems: Problems Problem Status Onset Hypoxemia Acute Hypoxia Acute
[2016-08-19 16:48] LABS: MYCOPLASMA PNUEMONIAE IGM 0.41 index (<=0.90)
== END 2016-08-18 16:54 | disposition home or self-care (01) | DRG 177 ==
LOC: F3E 16:32 → OBSVTOIN 16:33
PROVIDERS: ADMIT Internal Medicine; ATTEND Internal Medicine
PROC: 0BB68ZX Excision of Right Lower Lobe Bronchus, Via Natural or Artificial Opening Endoscopic, Diagnostic (ICD-10-PCS; principal; 2016-08-17 10:28)
PROC: 0B968ZX Drainage of Right Lower Lobe Bronchus, Via Natural or Artificial Opening Endoscopic, Diagnostic (ICD-10-PCS; principal; 2016-08-17 10:28)
DX: J69.0 Pneumonitis due to inhalation of food and vomit (principal); J96.01 Acute respiratory failure with hypoxia
CPT/HCPCS: 82947-QW; 86360-90; 86738-90; J0171; J2250; J3010; Q9967

== ENCOUNTER → 2016-09-15 | Outpatient (CLI) | payer OTHER | LOC: FIMAGING 16:16 | PROVIDERS: ATTEND Internal Medicine Pulmonary Disease | DX: Z13.83 Encounter for screening for respiratory disorder NEC (principal) ==

== ENCOUNTER 2017-04-03 06:32 | Inpatient (IN) | payer OTHER ==
--- NOTE | 2017-04-03 07:02 | EDPHY ---
H & P Time Seen by Provider: 04/03/17 06:45 - Personal History Current Tetanus/Diphtheria Vaccine: Yes Current Tetanus Diphtheria and Acellular Pertussis (TDAP): Yes Tetanus Vaccine Date: 2014 - Medical/Surgical History Hx Asthma: No Hx Chronic Respiratory Disease: No Hx Diabetes: No Hx Cardiac Disease: No Hx Renal Disease: No Hx Cirrhosis: No Hx Alcoholism: No Hx HIV/AIDS: No Hx Splenectomy or Spleen Trauma: No Other PMH: resp disease. anxiety - Social History Smoking Status: Never smoked Constitutional: Initial Vital Signs Temperature (C) 37.3 C 04/03/17 06:33 Heart Rate 114 H 04/03/17 06:33 Respiratory Rate 18 04/03/17 06:33 Blood Pressure 106/71 04/03/17 06:33 O2 Sat (%) 83 L 04/03/17 06:33 O2 Delivery Mode Nasal Cannula O2 (L/minute) 4 Allergies/Adverse Reactions: levofloxacin [From Levaquin] Allergy (Verified 08/15/16 14:33) Rash Home Medications: Medication Instructions Recorded Ibuprofen [Motrin (*)] 200 mg PO DAILY PRN 04/03/17 Naproxen Sodium [Aleve 220 MG (*)] 220 mg PO DAILY PRN 04/03/17 Medical Decision Making ED Course/Re-evaluation: CHIEF COMPLAINT: Hypoxemia shortness of breath and anxiety HISTORY OF PRESENT ILLNESS: This patient is a 36 y/o male with history of ongoing hypoxia of unknown etiology presenting with extreme shortness of breath onset this morning upon waking. This situation has been ongoing since May, and he has had two prior hospitalizations. He has had various studies including CT, CTA, transbronchial biopsy, and consults with pulmonology and infectious disease specialists. These studies have been inconclusive. He has had some improvement in the past with steroids. The patient lives [place] 9,000 [place] and has a home pulse oximeter. This morning he noted his SpO2 was around 71%, HR 140. Here at 5,430 ft the patient is at 82% on room air and remains tachycardic. He denies chest pain, headache, productive cough, fever, vomiting, or other associated symptoms. REVIEW OF SYSTEMS: A 10 point review of systems was performed and is negative with the exception of the elements mentioned in the history of present illness. PHYSICAL EXAM: HR, BP, O2 Sat, RR. Temp noted General Appearance: Alert, well hydrated, appropriate, and non-toxic appearing. Head: Atraumatic without scalp tenderness or obvious injury Eyes: Pupils equal, round, reactive to light and accommodation, EOMI, no trauma , no injection. Ears: Clear bilaterally, no perforation, normal landmarks Nose: Atraumatic, no rhinorrhea, clear. Throat: There is no erythema or exudates, no lesions, normal tonsils, mucus membranes moist. Neck: Supple, 2+ carotid upstroke, nontender, no lymphadenopathy. Respiratory: No retractions, no distress, no wheezes, and no accessory muscle use. Lungs are clear to auscultation bilaterally. Cardiovascular: Regular tachycardia, no murmurs, rubs, or gallops. Bilateral carotid, radial, dorsalis pedis, and posterior tibial pulses intact. Good capillary refill all extremities. Gastrointestinal: Abdomen is soft, nontender, non-distended, no masses, no rebound, no guarding, no peritoneal signs. Musculoskeletal: Normal active ROM of all extremities, atraumatic. Neurological: Alert, appropriate, and interactive. The patient has normal DTRs and non-focal cranial nerves, motor, sensory, and cerebellar exam. Skin: No rashes, good turgor, no nodules on palpation. Past medical history: Idiopathic hypoxemia Past surgical history: None Family history: Noncontributory Social history: . Lives in [place]. 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 Nonsmoker. Past medical records reviewed including admission from 08/15/16 for hypoxemia. DIAGNOSTICS/PROCEDURES/CRITICAL CARE TIME: The 12 lead EKG was interpreted by myself. See hard copy and/or "tracemaster" electronic copy for interpretation. Sinus tachycardia, rate 99, right axis deviation. DIFFERENTIAL DIAGNOSIS: The differential diagnosis for the patient's shortness of breath and hypoxemia included but was not limited to pneumonia, myocardial infarction, acute mountain sickness, high altitude pulmonary edema, congestive heart failure, and pulmonary embolus. MEDICAL DECISION MAKING: Healthy 36 y/o male with no prior medical problems until last May presents with idiopathic hypoxemia, SpO2 70% at his home at 9,000ft and 82% here at 5, 500ft. He was admitted in May and rehospitalized in August for similar symptoms with large negative workup. He had a transbronchial biopsy which was inconclusive; possible sarcoidosis, cryptogenic pneumonia. He improved with 60mg daily oral steroids for several weeks. The next recommendation at that time was for specialty care, open lung biopsy. Today, he returns with the same symptoms. He requires 4.5L to get from 82% to 92% oxygen saturation. On exam, his lungs are clear to auscultation bilaterally and his respiratory rate is within normal limits. Upon questioning the patient, he has never had an echocardiogram or bubble study in the past. Plan to complete this study. 07:35 Consulted with [facility] at [facility] in [place]. Recommends admission to [facility]. Head of interstitial lung disease will call. 07:[address] Jose Payne, wire walker at [facility]. Plan for outpatient follow up at the beginning of next week at [facility]. Plan to rule out acute processes, complete echocardiogram. If this is negative, plan to discharge home in good condition with home oxygen for follow up with [facility] next week as discussed with Dr. Payne. 07:52 technology program manager at bedside for echocardiogram. 07:52 The patient's troponin is elevated today at 0.4. Echocardiogram shows right ventricular hypokinesis. Evidence of non ST-elevation OH. Plan to administer 324mg PO aspirin. Plan to admit. Plan to consult with cardiology. 08:[address] Loes, prototype carpenter. He will consult with Dr. Blackman. Plan to take patient for catheterization today. 08:08 Spoke with hospitalist service. Dr. Malik accepts admission to PCU for NSTEMI with hypoxemia. If cardiac workup is negative, he can be discharged with home oxygen for follow up with Dr. Payne at [facility]. EKG shows sinus tachycardia. Right axis deviation. 08:21 Reassessed patient. Explained results and plan so far. The patient and his are comfortable with this. 08:[address] Blackamn, spool sander. - Data Points Laboratory Results: Laboratory Results 04/03/17 07:16 04/03/17 07:16 04/03/17 04/03/17 04/03/17 07:16 07:16 07:16 WBC 7.35 10^3/uL 10^3/uL (3.80-9.50) RBC 5.57 10^6/uL 10^6/uL (4.40-6.38) Hgb 17.1 g/dL g/dL (13.7-17.5) Hct 48.9 % % (40.0-51.0) MCV 87.8 fL fL (81.5-99.8) MCH 30.7 pg pg (27.9-34.1) MCHC 35.0 g/dL g/dL (32.4-36.7) RDW 12.8 % % (11.5-15.2) Plt Count 211 10^3/uL 10^3/uL (150-400) MPV 10.2 fL fL (8.7-11.7) Neut % (Auto) 77.5 % H % (39.3-74.2) Lymph % (Auto) 15.0 % % (15.0-45.0) Maverick % (Auto) 6.3 % % (4.5-13.0) Eos % (Auto) 0.4 % L % (0.6-7.6) Baso % (Auto) 0.4 % % (0.3-1.7) Nucleat RBC Rel Count 0.0 % % (0.0-0.2) Absolute Neuts (auto) 5.70 10^3/uL 10^3/uL (1.70-6.50) Absolute Lymphs (auto) 1.10 10^3/uL 10^3/uL (1.00-3.00) Absolute Monos (auto) 0.46 10^3/uL 10^3/uL (0.30-0.80) Absolute Eos (auto) 0.03 10^3/uL 10^3/uL (0.03-0.40) Absolute Basos (auto) 0.03 10^3/uL 10^3/uL (0.02-0.10) Absolute Nucleated RBC 0.00 10^3/uL 10^3/uL (0-0.01) Immature Gran % 0.4 % % (0.0-1.1) Immature Gran # 0.03 10^3/uL 10^3/uL (0.00-0.10) D-Dimer 0.53 ug/mLFEU H ug/mLFEU (0.00-0.50) Sodium 140 mEq/L mEq/L (134-144) Potassium 4.3 mEq/L mEq/L (3.5-5.2) Chloride 109 mEq/L mEq/L (97-110) Carbon Dioxide 20 mEq/l L mEq/l (22-31) Anion Gap 11 mEq/L mEq/L (8-16) BUN 14 mg/dL mg/dL (7-23) Creatinine 1.0 mg/dL mg/dL (0.7-1.3) Estimated GFR > 60 Glucose 92 mg/dL mg/dL (70-100) Calcium 9.0 mg/dL mg/dL (8.5-10.4) Troponin I 0.425 ng/mL H ng/mL (0.000-0.034) NT-Pro-B Natriuret Pep 604 pg/mL H pg/mL (0-125) Medications Given: Discontinued Medications Albuterol/Ipratropium (Duoneb) 3 ml IH EDNOW ONE Stop: 04/03/17 07:09 Last Admin: 04/03/17 07:23 Dose: 3 ml Aspirin (Aspirin) 324 mg PO EDNOW ONE Stop: 04/03/17 07:59 Last Admin: 04/03/17 08:11 Dose: 324 mg Departure - Departure Disposition: [facility] Acute Clinical Impression: Hypoxemia, NSTEMI (non-ST elevated myocardial infarction) Condition: Fair Referrals: Alethea Diaz MD [Primary Care Provider] - As per Instructions Report Scribed for: Mohamud Churchill Report Scribed by: Carmella Vicente Date of Report: 04/03/17 Time of Report: 07:13
[2017-04-03] MEDS ORDERED: IPRATROPIUM/ALBUTEROL 3 ML DEYVIAL IH ONE (07:08)
--- NOTE | 2017-04-03 07:20 | CPEKG ---
Heart Rate: 99 RR Interval: 606 P-R Interval: 184 QRSD Interval: 80 QT Interval: 348 QTC Interval: 447 P Crumpler: 66 QRS Crumpler: 95 T Wave Crumpler: 44 EKG Severity - OTHERWISE NORMAL ECG - EKG Impression: SINUS RHYTHM EKG Impression: BORDERLINE RIGHT AXIS DEVIATION Electronically Signed By: Mohamud Churchill 03-Apr-2017 14:50:02
[2017-04-03 07:27] LABS: % IMMATURE GRANULYOCYTES 0.4 % (0.0-1.1); ABSOLUTE IMMATURE GRANULOCYTES 0.03 10^3/uL (0.00-0.10); ADD DIFF? NO; ADD MORPH? NO; ADD SCAN? NO; ATYPICAL LYMPHOCYTE FLAG 20 (0-99); FRAGMENT RBC FLAG 0 (0-99); HEMATOCRIT 48.9 % (40.0-51.0); HEMOGLOBIN 17.1 g/dL (13.7-17.5); LEFT SHIFT FLG 10 (0-99); LIPEMIA HEMOLYSIS FLAG 90 (0-99); MEAN CELL HEMOGLOBIN 30.7 pg (27.9-34.1); MEAN CELL VOLUME 87.8 fL (81.5-99.8); MEAN PLATELET VOLUME 10.2 fL (8.7-11.7); PLATELET CLUMPS FLAG 0 (0-99); PLATELET COUNT 211 10^3/uL (150-400); RED BLOOD CELL COUNT 5.57 10^6/uL (4.40-6.38); RED CELL DISTRIBUTION WIDTH 12.8 % (11.5-15.2)
[2017-04-03 07:34] LABS: ANION GAP 11 mEq/L (8-16); CARBON DIOXIDE 20 mEq/l (22-31); CHLORIDE 109 mEq/L (97-110); GLOMERULAR FILTRATION RATE > 60; GLUCOSE 92 mg/dL (70-100); POTASSIUM 4.3 mEq/L (3.5-5.2); SODIUM 140 mEq/L (134-144)
[2017-04-03 07:46] LABS: TROPONIN I 0.425 ng/mL (0.000-0.034)
[2017-04-03] MEDS ORDERED: ASPIRIN 81 MG CHEWABLE TAB PO ONE (07:58)
[2017-04-03] MEDS ORDERED: ACETAMINOPHEN 325 MG TAB PO PRN (14:27)
[2017-04-03] MEDS ORDERED: ONDANSETRON 4 MG/2 ML VIAL IVP PRN (14:27)
[2017-04-03] MEDS ORDERED: IOPAMIDOL (ISOVUE 370) 100 ML BTL IV ONE (14:37)
--- NOTE | 2017-04-03 15:16 | GHP ---
[f rep st] HISTORY AND PHYSICAL DATE OF ADMISSION: 04/03/2017 CHIEF COMPLAINT: Shortness of breath. HISTORY OF PRESENT ILLNESS: The patient is a 36-year-old male, who was diagnosed with hypersensitivi ty pneumonitis last July, after he was found to have an abnormal lung biopsy. His symptoms actua lly started in May, when he developed a dry cough. He was treated for bronchitis without relief . He was hospitalized a second time in July, at which point his CTA was negative for PE, but did show diffuse ground glass opacities. He had a bronchoscopy that was negative. Biopsies however deshaun wed interstitial lung disease, with a differential diagnosis including hypersensitivity pneumonitis, versus cryptogenic organizing pneumonia, versus sarcoidosis. He was discharged on home oxygen and st eroids. He weaned off steroids in early November. He has been off oxygen since August. He did well thro [facility] the summer, who has a home pulse ox meter, which he checks intermittently, and has always been reading greater than 90%. He has had recurrence of symptoms now for the first couple of weeks. He will have spells of shortnes s of breath, diaphoresis, shaking chills, all over body aches, with chest pain and chest tightness. He had a severe one 48 hours ago, in the middle of the night, a nd checked his pulse ox, was 80% on room air, with a heart rate of 116. This morning, he had another episode where he woke up severely short of breath, and his home pulse ox was reading only 71% on cody m air, with a heart rate of 140, so they came to the emergency room. Echocardiogram in the emergency room showed right ventricular hypokinesis, a and borderline troponin elevation, so he was admitted. There are plans for possible cardiac catheterization by Cardiology. PAST MEDICAL HISTORY: Hypersensitivity pneumonitis, versus other interstitial lung disease. MEDICATIONS: Please see computer record for full detailed list. ALLERGIES: Levaquin. SOCIAL HISTORY: No smoking. Occasional alcohol. He lives in [place] [address]. 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 He lives with his and kids. REVIEW OF SYSTEMS: A complete review of systems obtained. Review of systems is negative for constit utional, HEENT, GI, pulmonary, cardiovascular, , hematology, skin, muscular, endocrine, psych. Pos itives and negatives as in HPI. FAMILY HISTORY: Reviewed, noncontributory to presenting complaint. PHYSICAL EXAMINATION: GENERAL: A well-developed, well-nourished male, in no acute distress. VITAL SIGNS: Temperature is 36.8, pulse 104, blood pressure 102/69, saturating 98% on 4 L. EYES: N ormal conjunctivae. Pupils equal and react to light. ENT: Normal ears and nose. Hearing intact. Normal lips and teeth. Oropharynx moist. NECK: Trachea midline. No thyromegaly. CHEST: Normal respiratory effort. LUNGS: Clear to auscultation bilaterally. CARDIOVASCULAR: Regular rhyth m. No murmur. No lower extremity edema. ABDOMEN: Soft, nontender. No hepatosplenomegaly. SKIN: Warm, dry, intact. No rash. MUSCULOSKELETAL: No cyanosis or clubbing. Strength 5/5 upper and low er extremities. NEUROLOGIC: Cranial nerves intact. Normal sensation to light touch. PSYCHIATRIC: Alert and oriented x3. Normal affect. Normal judgment and insight. Normal memory. LABORATORY DATA: White count 7.35, hematocrit 48.9, platelets 211. Sodium 140, potassium 4.3, chlor jose 109, bicarb 20, BUN 14, creatinine 1.0, glucose 92. BNP is 604. Troponin 0.425. D-dimer 0.53. EKG viewed by me, and my personal interpretation is normal sinus rhythm. Right axis deviation. Chest x-ray is negative. MEDICAL RECORD REVIEW: I reviewed old chart, which was detailed above, including results of his prev ious lung biopsy. Reviewed old chest x-rays, and his interstitial lung disease did have a similar ap pearance to the current chest x-ray he has now. ASSESSMENT/PLAN: 1. Acute respiratory failure. I suspect recurrence of his interstitial lung disease. I have spoken to Dr. Morris, who also thinks we need to rule out pulmonary embolus, and this will also give us a b clint view of his lung parenchyma. He is currently stable on 4 L. 2. Right ventricular hypokinesis. I suspect this is secondary to pulmonary hypertension, secondary to his pulmonary disease. 3. Troponin elevation. My suspicion is strain due to hypoxemia. Cardiology has been consulted by t emergency room. Reportedly they are considering cardiac catheterization. We will keep him n.p.o. 4. Interstitial lung disease. Differential diagnosis on previous biopsy with hypersensitivity pneum onitis, versus cryptogenic organizing pneumonia, versus sarcoidosis. I have spoken with Dr. Morris. He will see him in consultation. As discussed above, we will pursue a CT scan of the chest. A cons ultation with [facility] has already been arranged by them for this upcoming week. It is unclear to me if an open lung biopsy would give any additional information. It is unclear to me i f restarting empiric steroids would get in the way of further diagnostics. CODE STATUS: Full. ADMISSION STATUS: Will admit to observation as he might be able go home tomorrow depending on clinic al course. DVT PROPHYLAXIS: He is moderate risk. We will place him on subcu Lovenox. /[id number]/MODL
--- NOTE | 2017-04-03 18:04 | ECHO ---
[email or web address] [address] [address] Main: [phone] Fax: Transthoracic Echocardiogram Name: MARGOT COLMENARES MR#: [id number] Study Date: 04/03/2017 Study Time: 07:48 AM Date of : 1980 Age: 36 year(s) Height: 180.3 cm (71 in.) Weight: 83.92 kg (185 lb.) BSA: 2.04 m2 Gender: Male Examination: Echo with Agitated Saline Indication: Shortness of breath, Tachycardia, Decreased SAT's, Bubble exam for shunt, Positive Troponins Image Quality: Contrast: Requested by: Mohamud Churchill BP: 99 mmHg/79 mmHg Heart Rate: Rhythm: Indication: Shortness of breath, Tachycardia, Decreased SAT's, Bubble exam for shunt, Positive Troponins Procedure Staff 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 Normal global systolic LV function. EF is 72 %. Mildly dilated right ventricle. Moderately reduced RV function. Flattened LV septum c/w LV/RV Pressure, volume overload. Prominent RV moderator band. Agitated saline was injected. There was extremely sluggish transport of bubbles through the RV. Measurements: Chambers Valvular Assessment AV/MV Valvular Assessment TV/PV Normal Normal Normal Name Value Range Name Value Range Name Value Range Ao Francisca (MM): 3.4 cm (2.2 cm-3.7 MV E Vmax: 0.62 m/s ( - ) TR Vmax: 2.93 mm/s ( - ) cm) MV A Vmax: 0.89 m/s ( - ) TR PGmax: 34 mmHg ( - ) IVSd (2D): 0.9 cm (0.6 cm-1.1 MV E/A: 0.70 ( - ) syst. PAP: 39 mmHg ( - ) cm) PV Vmax: 0.98 m/s (0.6 m/s-0.9 LVDd (2D): 4.5 cm (4.2 cm-5.9 m/s) cm) PV PGmax: 4 mmHg ( - ) LVDs (2D): 2.6 cm (2.1 cm-4 cm) LVPWd (2D): 1.0 cm (0.6 cm-1 cm) LVEF (2D): 72 (>=54 %) RVDd(2D): 4.1 cm (1.9 cm-3.8 cmmm) Continued Measurements: Patient: MARGOT COLMENARES Study Date: 04/03/2017 Page 1 of 2 07:48 AM Valvular Assessment TV/PV Name Value CVP (est.): 5 mmHg Findings: Left Ventricle: Normal size left ventricle. Normal global systolic LV function. EF is 72 %. Right Ventricle: Mildly dilated right ventricle. Moderately reduced RV function. Flattened LV septum c/w LV/RV Pressure, volume overload. Prominent RV moderator band. Agitated saline was injected. There was extremely sluggish transport of bubbles through the RV. Left Atrium: The left atrium is normal in size. An agitated saline study was performed and was negative for intracardiac shunting. Right Atrium: The right atrium is normal in size. Mitral Valve: The mitral valve is normal in appearance and function. Aortic Valve: The aortic valve is normal in appearance and function. The aortic valve is tri-leaflet. Tricuspid Valve: The tricuspid valve appears normal. Mild tricuspid regurgitation is present. The pulmonary artery pressure is mildly increased. Pulmonic Valve: The pulmonic valve is normal in appearance and function. Aorta: The aorta is normal. Pericardium: No pericardial effusion. (No Signature Object) Patient: MARGOT COLMENARES Study Date: 04/03/2017 Page 2 of 2 07:48 AM [id number]
--- NOTE | 2017-04-03 18:06 | GCON ---
[f rep st] CONSULTATION CHEST CONSULTATION REASON FOR CONSULTATION: Breathlessness. HISTORY OF PRESENT ILLNESS: The patient is a very pleasant 36-year-old white male, well known to me with a past medical history of hypersensitivity pneumonitis. He has been followed by me in my office . This was first diagnosed in July of this year. This was proved by lung biopsy. He was discha rged home back then on steroids. In my office, we have been weaning steroids since early November. He p resents with increasing breathlessness. He denies any chest pain, pleuritic-type chest pain, or ronda na equivalent. No fever or night sweats. Echocardiogram and CT angiogram of the chest and abdomen h ave been performed. PAST MEDICAL HISTORY: Significant for hypersensitivity pneumonitis. ALLERGIES: Levaquin. SOCIAL HISTORY: No history of tobacco use. Infrequent alcohol use. 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 He is , has excellent family support. He resides in [place]. PHYSICAL EXAMINATION: VITAL SIGNS: Blood pressure is 112/73, pulse 88, respirations 14, temperature is 36.8, oxygen saturation 96% on 5 L. GENERAL: He is a well-developed, well-nourished 36-year-old white male, who is resting comfortably, in no acute distress. HEENT: Eyes are PERRLA, EOMI. Throa t shows no erythema or tonsillar hypertrophy. NECK: Supple. There is no cervical adenopathy. HEAR T: Regular rate and rhythm without murmurs, rubs, or gallops. LUNGS: Diminished breath sounds. A few bibasilar crackles but no wheeze. ABDOMEN: Soft. Nontender. Bowel sounds are present in all 4 quadrants. EXTREMITIES: No clubbing, cyanosis, or edema. LABORATORY DATA: White count is 7.5, hemoglobin 17, hematocrit 48, platelet count is 211. Sodium 14 0, potassium 4.3, chloride 109, CO2 is 20, BUN 14, creatinine is 1.0. Glucose is 92. Troponin is 0. 425. BNP is mildly elevated at 604. IMAGING DATA: CT angiogram of the chest shows no evidence of pulmonary embolus; however, there is hui btle scattered diffuse ground-glass attenuation and central lobular micronodules. IMPRESSION: 1. Interstitial lung disease, likely recurrence of his hypersensitivity pneumonitis. 2. Acute respiratory failure secondary to above. RECOMMENDATIONS: 1. Will start patient back on steroids, in particular prednisone 60 mg per day. 2. Patient to be discharged home on supplemental oxygen. 3. He will follow up with me in the office in approximately 2 weeks. 4. I have discussed with patient a possible second opinion, in particular sending patient to [facility]. I think this would be an excellent idea. /[id number]/MODL
--- NOTE | 2017-04-03 18:47 | GCON ---
[f rep st] CONSULTATION DATE OF CONSULTATION: 04/03/2017 CHIEF COMPLAINT: We have been asked by Dr. Malik to evaluate this patient with a chief complaint of shortness of breath and palpitations. HISTORY OF PRESENT ILLNESS: The patient is a 36-year-old gentleman with a history of hypersensitivit y pneumonitis who presented to the emergency department on 04/03/2017, with a chief complaint of shor tness of breath and palpitations. The patient was in his usual state of health until May, when he began to experience shortness of breath and cough. In July 2015, he was ultimately di agnosed with a hypersensitivity pneumonitis and started on steroid therapy. The patient noted signif icant improvement in his symptoms and tapered off therapy in November. The patient did well until approx imately 1 week prior to admission, when he began to experience a cough and shortness of breath. Appr oximately 48 hours prior to admission, patient was sitting on his couch watching TV and put a pulse o ximeter on his finger and noted that his heart rate was in the 120s. He noticed his saturation was a lso in the mid to low 80s. At that time, he began to experience symptoms of chest tightness and raci ng heart. He thought initially his symptoms were secondary to anxiety, so he took a Benadryl and teodora t to sleep. The following morning, he also checked his pulse and noted it to be somewhat rapid and h is oxygen saturations to be slightly higher in the mid to high 80s. On the day of admission, the patient noted that his heart rate was extremely fast in the 140s, prompt ing him to seek further evaluation. He presented to the emergency department, where he had an EKG pe rformed. His EKG demonstrated sinus rhythm, vertical axis, normal intervals, left atrial enlargement . No acute ST or T-wave changes. His initial troponin was mildly elevated at 0.425. The patient un derwent an echocardiogram which demonstrated preserved left ventricular size and systolic function wi th no segmental wall motion abnormalities. The patient did have mild pulmonary hypertension with a P A pressure of 40 mmHg, as well as right ventricular enlargement and right ventricular hypokinesis. T he patient underwent a CT pulmonary angiogram which demonstrated no evidence of pulmonary emboli but was notable for interstitial pneumonitis. We are consulted to help in the further management of this patient. The patient denies a previous history of coronary artery disease. The patient denies a hi story of hypertension, hyperlipidemia, tobacco use, or family history of coronary artery disease. MEDICATIONS: Please see medicine reconciliation form. ALLERGIES: Levaquin. 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 He lives with his and kids. He has 2 young children at home. He does not smoke. He reports occasional alcohol u se. REVIEW OF SYSTEMS: 10-point review of systems is negative, except as noted in HPI. PHYSICAL EXAMINATION: GENERAL: The patient is resting comfortably in bed. He does not appear to be in acute distress. VITAL SIGNS: Temperature is afebrile. Pulse is 88, blood pressure 112/73, resp iratory rate is 14, SaO2 is 96% on 5 L nasal cannula. HEENT: Normocephalic, atraumatic. Extraocula r muscles intact. NECK: Positive JVD. No bruits. LUNGS: Coarse bronchial breath sounds bilateral ly. CARDIOVASCULAR: Regular rate and rhythm. S1, S2. No murmurs, rubs, or gallops appreciated. A BDOMEN: Soft, nontender. Normoactive bowel sounds. No hepatosplenomegaly noted. EXTREMITIES: No clubbing, cyanosis, or edema. SKIN: No evidence of rashes. NEURO: Patient is awake, alert and lidya ented x3. LABORATORY: Sodium 140, potassium 4.3, chloride 109, CO2 20, BUN 14, creatinine 1.0. Troponin 0.425 . D-dimer is 0.53. White blood cell count 7.35, hemoglobin 17.1, hematocrit 48.9, platelet count 21 1. ASSESSMENT AND PLAN: The patient is a 36-year-old gentleman with elevated troponin. The patient pre sents with a mildly elevated troponin in the setting of probable recurrent hypersensitivity pneumonit is. His EKG demonstrates no acute ST or T-wave changes. His echocardiogram is notable for normal le ft ventricular size and systolic function with right ventricular dilation and hypokinesis. Suspect t he elevated troponin is likely secondary to right ventricular strain from his primary pulmonary proce ss. Would recommend obtaining serial biomarkers; if these remain low level and flat, would assume th at this is secondary to his hypersensitivity pneumonitis and would not pursue further. If patient early d a typical rise and fall consistent with an acute coronary syndrome, would consider further cardiova scular evaluation. /[id number]/MODL
[2017-04-04] MEDS ORDERED: CANN-EASE 2 GM TUBE TP ONE (02:43)
[2017-04-04 05:22] LABS: % IMMATURE GRANULYOCYTES 0.6 % (0.0-1.1); ABSOLUTE IMMATURE GRANULOCYTES 0.03 10^3/uL (0.00-0.10); ADD DIFF? NO; ADD MORPH? NO; ADD SCAN? NO; ATYPICAL LYMPHOCYTE FLAG 20 (0-99); FRAGMENT RBC FLAG 0 (0-99); HEMATOCRIT 48.7 % (40.0-51.0); HEMOGLOBIN 16.4 g/dL (13.7-17.5); LEFT SHIFT FLG 0 (0-99); LIPEMIA HEMOLYSIS FLAG 80 (0-99); MEAN CELL HEMOGLOBIN CONCENTR. 33.7 g/dL (32.4-36.7); MEAN PLATELET VOLUME 10.4 fL (8.7-11.7); PLATELET CLUMPS FLAG 10 (0-99); PLATELET COUNT 217 10^3/uL (150-400); RED BLOOD CELL COUNT 5.47 10^6/uL (4.40-6.38); RED CELL DISTRIBUTION WIDTH 12.9 % (11.5-15.2)
[2017-04-04 05:44] LABS: ANION GAP 12 mEq/L (8-16); CALCIUM 9.2 mg/dL (8.5-10.4); CARBON DIOXIDE 22 mEq/l (22-31); CHLORIDE 106 mEq/L (97-110); CHOLESTEROL 138 mg/dL (140-200); CHOLESTEROL/HDL RATIO 2.94 RATIO (1.00-4.97); CREATININE 0.9 mg/dL (0.7-1.3); GLOMERULAR FILTRATION RATE > 60; GLUCOSE 73 mg/dL (70-100); HIGH DENSITY LIPOPROTEIN 47 mg/dL (40-65); LDL/HDL RATIO 1.55 RATIO (1.00-3.64); LOW DENSITY LIPOPROTEIN 73 mg/dL (70-100); NON-HIGH DENSITY LIPOPROTEIN 91 mg/dL (90-129); POTASSIUM 4.5 mEq/L (3.5-5.2); SODIUM 140 mEq/L (134-144); TRIGLYCERIDE 90 mg/dL (40-150); VERY LOW DENSITY LIPOPROTEINS 18 mg/dL (8-25)
--- NOTE | 2017-04-04 05:48 | CPEKG ---
Heart Rate: 68 RR Interval: 882 P-R Interval: 196 QRSD Interval: 84 QT Interval: 392 QTC Interval: 417 P Nichols: 76 QRS Nichols: 98 T Wave Nichols: 64 EKG Severity - ABNORMAL ECG - EKG Impression: SINUS RHYTHM EKG Impression: BORDERLINE RIGHT AXIS DEVIATION EKG Impression: ABNORMAL T, PROBABLE ISCHEMIA, ANTERIOR LEADS Electronically Signed By: Elliott Meza 04-Apr-2017 09:14:57
[2017-04-04] MEDS ORDERED: ENOXAPARIN 40 MG/0.4 ML SYR SC SCH (09:00)
--- NOTE | 2017-04-04 10:51 | PDCARPN ---
Cardiology Progress Note Chief Complaint: Dyspnea Assessment/Plan: Assessment: Troponin elevation of 0.425 on admit, with no significant EKG changes. Today EKG shows significant T-Wave inversion ant-septal leads. He has no chest pain today. His oxygen has been reduced from 5L to 2 L per [facility] and he feels he is breathing much better. Hx of Hypersensitivity pneumonitis treated with steroids. He has been hospitalized 2 previous times this year for same. He has no had steroids this admission. Will ask Dr Daniel to review EKG and make recommendation for possible cardiac angiogram. Plan: Cardiac angiogram in morning. Start Heparin today. Plan for 8:00 cath tomorrow morning. 04/04/17 10:52 Objective: Vital Signs (8 Hrs) Temp Pulse Resp BP Pulse Ox 04/04/17 07:53 36.4 C 89 16 108/76 92 04/04/17 04:00 36.4 C 81 16 103/65 94 Intake/Output (24 Hrs) 04/03/17 04/04/17 04/05/17 05:59 05:59 05:59 Intake Total 400 Balance 400 Intake: Oral (ml) 400 Other: Weight 83.915 kg Intake Quantity Yes Sufficient Result Diagrams: 04/04/17 04:01 04/04/17 04:01 Cardiac Labs: Cardiac Lab Results (72 Hrs) 04/03/17 04/03/17 23:40 18:46 Troponin I 0.041 H 0.068 H - Physical Exam Constitutional: WDWN, no apparent distress Cardiovascular: regular rate and rhythm, no murmurs, no rubs, no gallops Respiratory: clear to auscultate bilat, no crackles, no wheezes Skin: warm, no edema Neurologic: AAOx3 Psychiatric: cooperative, interactive ICD10 Worksheet Patient Problems: Problems Problem Status Onset Hypoxemia Acute NSTEMI (non-ST elevated myocardial infarction) Acute Hypoxia Acute
[2017-04-04] MEDS: predniSONE 20 MG TAB PO SCH (11:06)
[2017-04-04] MEDS ORDERED: HEPARIN 10,000 UNIT/10 ML MDV IVP ONE (11:34)
[2017-04-04] MEDS ORDERED: HEPARIN 10,000 UNIT/10 ML MDV IVP PRN (11:34)
--- NOTE | 2017-04-04 11:40 | HOSPPROG ---
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 - follows with Dr Morris as outpatient - prednisone inpatient - needs > 2 midnights for treatment of acute NSTEMI Subjective: no CP; SOB actually better Objective: Vital Signs Temp Pulse Resp BP Pulse Ox 36.4 C 89 16 108/76 92 04/04/17 07:53 04/04/17 07:53 04/04/17 07:53 04/04/17 07:53 04/04/17 07:53 Microbiology 04/03/17 16:15 Respiratory Panel (PCR) - Final Nasal, Sinus - Swab No Organism Detected Laboratory Results 04/04/17 04:01 04/04/17 04:01 04/03/17 04/04/17 04/05/17 05:59 05:59 05:59 Intake Total 400 Balance 400 chart reviewed ECG personally reviewed - Physical Exam Constitutional: no apparent distress, appears nourished Cardiovascular: regular rate and rhythym, no murmur, rub, or gallop Respiratory: no respiratory distress, inspiratory crackles (diffuse), No reduced air movement, No expiratory wheeze Gastrointestinal: normoactive bowel sounds, soft, non-tender abdomen, no palpable masses ICD10 Worksheet Patient Problems: Problems Problem Status Onset Hypoxemia Acute Hypoxia Acute NSTEMI (non-ST elevated myocardial infarction) Acute
[2017-04-04] MEDS ORDERED: HEPARIN/DEXTROSE 500 ML IV SCH (11:45)
[2017-04-04 11:55] LABS: % IMMATURE GRANULYOCYTES 0.2 % (0.0-1.1); ABSOLUTE IMMATURE GRANULOCYTES 0.01 10^3/uL (0.00-0.10); ADD DIFF? NO; ADD MORPH? NO; ADD SCAN? NO; ATYPICAL LYMPHOCYTE FLAG 10 (0-99); FRAGMENT RBC FLAG 0 (0-99); HEMATOCRIT 47.9 % (40.0-51.0); HEMOGLOBIN 16.8 g/dL (13.7-17.5); LEFT SHIFT FLG 0 (0-99); LIPEMIA HEMOLYSIS FLAG 90 (0-99); MEAN CELL HEMOGLOBIN 30.4 pg (27.9-34.1); MEAN CELL HEMOGLOBIN CONCENTR. 35.1 g/dL (32.4-36.7); MEAN CELL VOLUME 86.6 fL (81.5-99.8); PLATELET CLUMPS FLAG 10 (0-99); PLATELET COUNT 217 10^3/uL (150-400); RED BLOOD CELL COUNT 5.53 10^6/uL (4.40-6.38); RED CELL DISTRIBUTION WIDTH 12.6 % (11.5-15.2)
[2017-04-04 12:03] LABS: INR 1.09 (0.83-1.16)
[2017-04-04 12:04] LABS: APTT 28.7 SEC (23.0-38.0)
--- NOTE | 2017-04-04 12:11 | PDMN ---
Medical Necessity Medical necessity: C/M review: Pt. meets INPT criteria per MCG M-130 Myocardial infarction; acute NSTEMI, troponins 0.425, 0.068, 0.041, significant T wave inversion in anterior-septal leads on 04/04/2017 EKG, acute hypoxic respiratory failure, 83% room air sats, dyspnea, requiring planned 04/05/2017 cardiac catheterization, ongoing IV Heparin infusion, cardiac monitoring, pulse oximetry, supplemental O2, comorbid hx hypersensitivity pneumonitis; anticipate > 2 MN LOS for ongoing medical necessity for eval and TX of above.
--- NOTE | 2017-04-04 14:59 | SOAPPROG ---
SOAP Progress Note Assessment/Plan: Assessment/Plan: * Acute respiratory failure secondary to ILD -continue supplemental oxygen. * Hypersensitivity pneumonitis-recurrence. -continue prednisone at 60 mg a day * EKG changes-for cardiac catheterization tomorrow Subjective: Resting comfortably on supplemental oxygen. Minimal cough. Denies any pain. Objective: Vital Signs Temp Pulse Resp BP Pulse Ox 36.4 C 79 18 117/64 93 04/04/17 12:00 04/04/17 12:00 04/04/17 12:00 04/04/17 12:00 04/04/17 12:00 Laboratory Results 04/04/17 11:42 PT 14.0 SEC (12.0-15.0) 04/04/17 11:42 INR 1.09 (0.83-1.16) 04/04/17 11:42 Physical Exam - Physical Exam General Appearance: alert, no apparent distress EENT: PERRL/EOMI, normal ENT inspection Respiratory: crackles (Few basilar), No respiratory distress, No wheezing Cardiac/Chest: normal peripheral pulses, regular rate, rhythm Peripheral Pulses: 2+: carotid (R), carotid (L), femoral (R), femoral (L), dorsalis-pedis (R), dorsalis-pedis (L) Abdomen: normal bowel sounds, non-tender, soft Male Genitalia: deferred Rectal: deferred Skin: normal color, warm/dry Extremities: normal range of motion, non-tender, normal inspection, normal capillary refill Neuro/Psych: no motor/sensory deficits, alert, normal mood/affect, oriented x 3 ICD10 Worksheet Patient Problems: Problems Problem Status Onset Hypoxemia Acute NSTEMI (non-ST elevated myocardial infarction) Acute Hypoxia Acute
--- NOTE | 2017-04-04 15:51 | ASMTCMCOM ---
CM Note CM Note Notes: Reviewed chart re: d/c poc, pt's progress. Pt admitted w/ acute resp failure sec to ILD/hypersensitivity pneumonitis. Wears oxygen at baseline. This admission the pt's echo shows right ventricular hypokinesis w/ borderline elev troponins. Pt to have a heart cath 04/05/17 at 0800. Discharge needs remain TBD at this time. Anticipate pt will likely d/c w/ home oxygen and no further needs. CM will cont to follow. Date Signed: 04/04/2017 03:51 PM Electronically Signed By:Melania Rodgers RN
[2017-04-05 02:52] LABS: % IMMATURE GRANULYOCYTES 0.5 % (0.0-1.1); ABSOLUTE IMMATURE GRANULOCYTES 0.04 10^3/uL (0.00-0.10); ADD DIFF? NO; ADD MORPH? NO; ADD SCAN? NO; ATYPICAL LYMPHOCYTE FLAG 20 (0-99); FRAGMENT RBC FLAG 0 (0-99); HEMATOCRIT 45.9 % (40.0-51.0); HEMOGLOBIN 16.5 g/dL (13.7-17.5); LEFT SHIFT FLG 0 (0-99); LIPEMIA HEMOLYSIS FLAG 90 (0-99); MEAN CELL HEMOGLOBIN 30.9 pg (27.9-34.1); MEAN CELL HEMOGLOBIN CONCENTR. 35.9 g/dL (32.4-36.7); PLATELET CLUMPS FLAG 0 (0-99); PLATELET COUNT 221 10^3/uL (150-400); RED BLOOD CELL COUNT 5.34 10^6/uL (4.40-6.38); RED CELL DISTRIBUTION WIDTH 12.3 % (11.5-15.2)
[2017-04-05 03:03] LABS: ANION GAP 9 mEq/L (8-16); CALCIUM 9.6 mg/dL (8.5-10.4); CARBON DIOXIDE 22 mEq/l (22-31); CHLORIDE 104 mEq/L (97-110); CREATININE 0.8 mg/dL (0.7-1.3); GLOMERULAR FILTRATION RATE > 60; GLUCOSE 106 mg/dL (70-100); POTASSIUM 4.1 mEq/L (3.5-5.2); SODIUM 135 mEq/L (134-144)
[2017-04-05] MEDS ORDERED: FLU VACC QS 2017-18 (3YR+)/PF 0.5 ML SYR (FLUARIX QUAD) IM ONE ×2 (06:00→14:30)
[2017-04-05] MEDS ORDERED: LIDOCAINE 1% 300 MG/30 ML SDV ONE (07:46)
[2017-04-05] MEDS ORDERED: MIDAZOLAM 2 MG/2 ML VIAL ONE (07:47)
[2017-04-05] MEDS ORDERED: HEPARIN 10,000 UNIT/10 ML MDV ONE (07:47)
[2017-04-05] MEDS ORDERED: IOPAMIDOL (ISOVUE-370) 150 ML BTL IV ONE (07:47)
[2017-04-05] MEDS ORDERED: fentaNYL 100 MCG/2 ML INJ ONE (07:47)
[2017-04-05] MEDS ORDERED: VERAPAMIL 5 MG/2 ML VIAL ONE (07:47)
--- NOTE | 2017-04-05 08:04 | PDHPUP ---
History & Physical Update H&P update statement: This history and physical update is based on an assessment of the patient which was completed after admission or registration (within 24 hours), but prior to the surgery/procedure. H&P update: H&P reviewed & patient examined, no change in patient's condition since H&P completed
--- NOTE | 2017-04-05 08:05 | PDPROPOC ---
Sedation Plan of Care Sedation Plan of Care: vital signs stable, mental status noted, patient educated of risks, benefits, alternatives, patient can tolerate sedation ASA Classification: ASA 1 Planned drugs: fentanyl, midazolam Mallampati Score: Class 1 Mallampati Reference Image: Patient passed 3-3-2 rule?: Yes
--- NOTE | 2017-04-05 08:52 | PDDXCAT ---
Diagnostic Cath Note - . Date: 04/05/17 [place] Operator: Fredy Indication: other (Chest pain associated with appropriate elevation and fall in troponin consistent with non-Q-wave myocardial infarction) - Procedure Access: right wrist Procedure: left heart catheterization, coronary angiography, left ventriculogram - Materials Left Heart Cath size: 5F Left Heart Cath materials: pigtail, other ([email or web address]) - Findings-Left Heart Catheterization LM: Long unobstructed LAD: Normal LCX: Dominant: Normal RCA: Non dominant: Normal EDP: 12 mm of mercury LVEF: 60% Wall motion: Normal Complications: None Estimated blood loss: <50ml Closure method: TR Band Assessment: Procedural note: See computer report. 80 cc contrast administered. Sedation: 3 mg Versed, 75 mcg fentanyl. 3.2 minutes fluoroscopy. 105 mGy. Conclusions: Angiographically normal coronary arteries. Normal left ventricular systolic function. Elevation in troponin likely secondary to right heart strain in the setting of hypoxia secondary to pneumonitis. Plan: Aggressive management of hypersensitivity pneumonitis. Continue primary prevention for cardiovascular disease. Patient Problems: Problems Problem Status Onset Hypoxemia Acute Hypoxia Acute NSTEMI (non-ST elevated myocardial infarction) Acute
[2017-04-05] MEDS ORDERED: ATROPINE SULFATE 1 MG/10 ML SYR IVP PRN (10:24)
[2017-04-05] MEDS ORDERED: NITROGLYCERIN 0.4 MG BTL SL PRN (10:24)
[2017-04-05 10:44] VITALS: RESP 14; TEMP 98.1
[2017-04-05] MEDS: predniSONE 20 MG TAB PO SCH (11:17)
--- NOTE | 2017-04-05 11:32 | PDHOMEO2F ---
Home Oxygen Face to Face Home Orders: I certify that a physician or a nurse practitioner or physician's pharmacy innovation assistant has had a [id number] encounter with this patient on the date of this order due to the diagnosis listed, which relates to the primary reason the patient requires home oxygen. Alternative treatments have been tried, or considered, and deemed ineffective. It is anticipated that supplemental oxygen will result in improvement with treatment. Home oxygen qualifying diagnosis: pneumonitis SpO2 on room air (%): 87 Frequency of home oxygen needed: continuous Home oxygen liters per minute: 2 Home oxygen delivery device: nasal cannula Concentrator: Yes E-tanks for mobility and back up: Yes If ordering portable O2, is the patient mobile in the home?: Yes I certify that, based on these findings, the home oxygen is medically necessary for this patient for the following length of time. Length of time home oxygen needed: 3 months
[2017-04-05 12:38] VITALS: O2SAT 87
--- NOTE | 2017-04-05 12:47 | SOAPPROG ---
SOAP Progress Note Assessment/Plan: Assessment/Plan: * Acute respiratory failure secondary to ILD -continue supplemental oxygen. * Hypersensitivity pneumonitis-recurrence. -continue prednisone at 60 mg a day * EKG changes-cardiac catheterization negative cardiac catheterization negative * Disposition-agree with home today and follow up in my office in 2 weeks Subjective: Resting comfortably on supplemental oxygen. Objective: Vital Signs Temp Pulse Resp BP Pulse Ox 36.7 C 68 14 103/67 87 L 04/05/17 10:00 04/05/17 10:30 04/05/17 10:00 04/05/17 10:30 04/05/17 12:35 Laboratory Results 04/05/17 02:35 04/05/17 02:35 04/04/17 04/05/17 04/06/17 05:59 05:59 05:59 Intake Total 2150 300 Balance 2150 300 PT 14.0 SEC (12.0-15.0) 04/04/17 11:42 INR 1.09 (0.83-1.16) 04/04/17 11:42 Physical Exam - Physical Exam General Appearance: WD/WN, alert, no apparent distress EENT: PERRL/EOMI Neck: non-tender, full range of motion, supple, normal inspection Respiratory: chest non-tender, lungs clear, normal breath sounds Cardiac/Chest: normal peripheral pulses, regular rate, rhythm Peripheral Pulses: 2+: carotid (R), carotid (L), femoral (R), femoral (L), dorsalis-pedis (R), dorsalis-pedis (L) Abdomen: normal bowel sounds, non-tender, soft Skin: normal color, warm/dry Extremities: normal range of motion, non-tender, normal inspection, normal capillary refill ICD10 Worksheet Patient Problems: Problems Problem Status Onset Hypoxemia Acute NSTEMI (non-ST elevated myocardial infarction) Acute Hypoxia Acute
--- NOTE | 2017-04-05 13:04 | GDS ---
[f rep st] DISCHARGE SUMMARY FINAL DIAGNOSES: 1. Non ST elevated myocardial infarction. 2. Acute hypoxic respiratory failure. 3. Suspected hypersensitivity pneumonitis. HOSPITAL COURSE: This is a 36-year-old man with a recent diagnosis of hypersensitivity pneumonitis, presented with shortness of breath. Recent workup had included bronchoscopy which showed possible hy persensitivity pneumonitis, other considerations were HARNESS BRUSHER and sarcoid. He had been followed by Dr. Janna berumen as an outpatient who has been weaning prednisone. He presented more short of breath. He had a troponin of 0.4. EKG the morning after admission showed ischemic appearing T-wave inversions (initi al EKG had been normal). Because of this, he underwent cardiac catheterization which showed normal c oronary arteries. Was seen by Pulmonology who recommends prednisone 60 mg. He will be discharged in stable condition with prednisone 60 mg, supplemental oxygen given his ongoing hypoxia, note to excus e him from work until cleared by Pulmonology. FOLLOWUP: 1. Dr. Morris in 2 weeks. 2. [facility], Dr. Sandoval had been contacted by the ER and is supposed to contact the patient for an appointment soon. BILLING: I spent more than 30 minutes on the day of discharge coordinating care. /[id number]/MODL
[2017-04-05 14:12] VITALS: BP 103/70; PULSE 65
--- NOTE | 2017-04-05 15:53 | ASDISCHSUM ---
Discharge Information Plan Status:Home with DME or Oxygen Medically Cleared to Leave:04/05/2017 Discharge Date:04/05/2017 03:15 PM CM D/C Disposition:Home, Routine, Self-Care ADT D/C Disposition:Home, Routine, Self-Care Projected Discharge Date:04/05/2017 03:15 PM Transportation at D/C:Family Discharge Delay Reason: Follow-Up Date:04/05/2017 03:15 PM Discharge Slot:2 - 12:01 pm - 18:00 pm Final Diagnosis:NSTEMI, acute hypoxic respiratory failure, suspected hypersensitivity pneumonitis Placement Information Patient Contact Information Contact Name:ROSA Relationship: Address:[address] [place] [address] [facility] Work Phone: City:[place] [facility] Phone: State/Zip Code:[place] [address] Email: Financial Information Financial Class:Simón Lowe Primary Plan Desc:SIMÓN MEJIA [facility] Primary Plan Number:[id number] Secondary Plan Desc: Secondary Plan Number: Assessment Information [facility] CM Progress Note CM Note CM Note Notes: Reviewed chart re: d/c poc, pt's progress. Pt admitted w/ acute resp failure sec to ILD/hypersensitivity pneumonitis. Wears oxygen at baseline. This admission the pt's echo shows right ventricular hypokinesis w/ borderline elev troponins. Pt to have a heart cath 04/05/17 at 0800. Discharge needs remain TBD at this time. Anticipate pt will likely d/c w/ home oxygen and no further needs. CM will cont to follow. Date Signed: 04/04/2017 03:51 PM Electronically Signed By:Melania Rodgers RN [facility] CM Progress Note CM Note CM Note Notes: Reviewed chart re: d/c poc, pt's progress. Per MD notes, pt to discharge home independently w/ family support and home oxygen. Pt s/p heart cath w/ normal coronary arteries. Pt to f/u with Cardiology, Dr. Morris and [facility] as directed. No IM signed, not applicable. CM avail for any further issues or concerns. Date Signed: 04/05/2017 03:52 PM Electronically Signed By:Melania Rodgers RN Intervention Information
--- NOTE | 2017-04-08 14:12 | PQFORM ---
PHYSICIAN QUERY FORM Needs Your Response This query form is being sent to you to assure this patient record is coded properly. Please respond to the question below: IMPLEMENTATION ARCHITECT QUESTION: Dr Mcbride Please clarify Prin Dx on this patient. Discharge Summary States NSTEMI but the Cardiac Cath was negative and states that the NSTEMI was ruled out. Did this patient have a NSTEMI? ____ YES __x__ NO ____ Other Please document dx ____ Unable to determine Thank You Susan [employer]IV[employer] Console Operator INSTRUCTIONS FOR RESPONSE: Answer question by clicking on the "Edit Document" button. Move cursor to area below the stars. When complete, hit "Save." Click on the "Sign" button, then click "Sign" again. Type in your PIN and hit "Enter." MTDD
== END 2017-04-05 15:15 | disposition home or self-care (01) | DRG 189 ==
LOC: F2W 11:51 → OBSVTOIN 04-04 11:36
PROVIDERS: ADMIT Internal Medicine; ATTEND Internal Medicine
DX: J96.01 Acute respiratory failure with hypoxia (principal); J84.9 Interstitial pulmonary disease, unspecified; J67.9 Hypersensitivity pneumonitis due to unspecified organic dust; I50.89 Other heart failure
CPT/HCPCS: 85520-90; C1769; G0008; G0378; J1644; J1650; J2250; J3010; Q9967

== ENCOUNTER → 2017-08-06 | Outpatient (CLI) | payer OTHER | LOC: FIMAGING 16:36 | DX: Z13.83 Encounter for screening for respiratory disorder NEC (principal) ==

== ENCOUNTER 2017-11-04 04:39 | Inpatient (IN) | payer OTHER ==
[2017-11-04] MEDS ORDERED: IPRATROPIUM/ALBUTEROL 3 ML DEYVIAL IH ONE (04:48)
[2017-11-04] MEDS ORDERED: NS 500 ML IV ONE (04:48)
[2017-11-04] MEDS ORDERED: methylPREDNISolone SOD SUCC 125 MG/2 ML VIAL IVP ONE (04:48)
[2017-11-04 05:12] LABS: PLATELET COUNT 247 10^3/uL (150-400)
--- NOTE | 2017-11-04 05:34 | CPEKG ---
Heart Rate: 114 RR Interval: 526 P-R Interval: 188 QRSD Interval: 88 QT Interval: 320 QTC Interval: 441 P [place]: 57 QRS [place]: -8 T Wave [place]: 46 EKG Severity - OTHERWISE NORMAL ECG - EKG Impression: SINUS TACHYCARDIA Electronically Signed By: Mary Cespedes 04-Nov-2017 08:15:52
[2017-11-04] MEDS ORDERED: ONDANSETRON 4 MG/2 ML VIAL IVP PRN (05:50)
[2017-11-04] MEDS ORDERED: ALBUTEROL 3 ML DEYVIAL IH PRN (05:50)
[2017-11-04] MEDS ORDERED: ACETAMINOPHEN 325 MG TAB PO PRN (05:50)
[2017-11-04] MEDS ORDERED: ONDANSETRON DISINTEGRATING 4 MG TAB PO PRN (05:50)
[2017-11-04] MEDS ORDERED: IOPAMIDOL (ISOVUE 370) 100 ML BTL IV ONE ×2 (06:21→06:27)
--- NOTE | 2017-11-04 06:37 | PDGENHP ---
History and Physical - Chief Complaint Shortness of breath - History of Present Illness 37 yo M w/ unspecified lung disease presents with hypoxia. Patient has long history of lung disease, possibly HP but unclear after biopsy at [facility]. He has frequent flares requiring hospitalization. On this occasion patient's daughters had what sounds like a viral URI. He then developed similar symptoms (cough, congestion x4 days) and then a fever last night. Today he was brought to the ED and was found to be severely hypoxic, needing 10 L/min via facemask to maintain O2 sats. He was started on Cellcept 3 months ago after his most recent flare. History Information - Allergies/Home Medication List Allergies/Adverse Reactions: levofloxacin [From Levaquin] Allergy (Verified 08/15/16 14:33) Rash Home Medications: Ibuprofen [Motrin (*)] 200 mg PO DAILY PRN 04/03/17 [Last Taken Unknown] Naproxen Sodium [Aleve 220 MG (*)] 220 mg PO DAILY PRN 04/03/17 [Last Taken Unknown] I have personally reviewed and updated: family history, medical history - Past Medical History Additional medical history: Lung disease - HP? - Surgical History Reports: no pertinent surgical hx - Family History Additional family history: Denies family hx of autoimmune or lung disease - Social History Smoking Status: Never smoked Review of Systems Review of Systems: ROS: 10pt was reviewed & negative except for what was stated in HPI & below Physical Exam Physical Exam: Temp Pulse Resp BP Pulse Ox 37.1 C 110 H 22 H 118/72 92 11/04/17 04:55 11/04/17 05:30 11/04/17 05:30 11/04/17 05:30 11/04/17 05:30 Constitutional: appears nourished, uncomfortable Eyes: PERRL, EOMI Ears, Nose, Mouth, Throat: moist mucous membranes, no oral mucosal ulcers Cardiovascular: regular rate and rhythym, no murmur, rub, or gallop Respiratory: reduced air movement, respiratory distress, other (Wheeze audible with cough only) Gastrointestinal: normoactive bowel sounds, soft, non-tender abdomen Skin: warm, normal color Musculoskeletal: full muscle strength, no muscle tenderness Neurologic: AAOx3, CN II-XII Intact Psychiatric: interacting appropriately, not anxious Lab Data & Imaging Review 11/04/17 04:45 11/04/17 04:45 WBC 12.77 10^3/uL (3.80-9.50) H 11/04/17 04:45 RBC 5.69 10^6/uL (4.40-6.38) 11/04/17 04:45 Hgb 17.5 g/dL (13.7-17.5) 11/04/17 04:45 Hct 49.4 % (40.0-51.0) 11/04/17 04:45 MCV 86.8 fL (81.5-99.8) 11/04/17 04:45 MCH 30.8 pg (27.9-34.1) 11/04/17 04:45 MCHC 35.4 g/dL (32.4-36.7) 11/04/17 04:45 RDW 12.8 % (11.5-15.2) 11/04/17 04:45 Plt Count 247 10^3/uL (150-400) 11/04/17 04:45 MPV 9.7 fL (8.7-11.7) 11/04/17 04:45 Neut % (Auto) 81.7 % (39.3-74.2) H 11/04/17 04:45 Lymph % (Auto) 10.5 % (15.0-45.0) L 11/04/17 04:45 [place] % (Auto) 6.2 % (4.5-13.0) 11/04/17 04:45 Eos % (Auto) 0.7 % (0.6-7.6) 11/04/17 04:45 Baso % (Auto) 0.5 % (0.3-1.7) 11/04/17 04:45 Nucleat RBC Rel Count 0.0 % (0.0-0.2) 11/04/17 04:45 Absolute Neuts (auto) 10.44 10^3/uL (1.70-6.50) H 11/04/17 04:45 Absolute Lymphs (auto) 1.34 10^3/uL (1.00-3.00) 11/04/17 04:45 Absolute Monos (auto) 0.79 10^3/uL (0.30-0.80) 11/04/17 04:45 Absolute Eos (auto) 0.09 10^3/uL (0.03-0.40) 11/04/17 04:45 Absolute Basos (auto) 0.06 10^3/uL (0.02-0.10) 11/04/17 04:45 Absolute Nucleated RBC 0.00 10^3/uL (0-0.01) 11/04/17 04:45 Immature Gran % 0.4 % (0.0-1.1) 11/04/17 04:45 Immature Gran # 0.05 10^3/uL (0.00-0.10) 11/04/17 04:45 D-Dimer 0.68 ug/mLFEU (0.00-0.50) H 11/04/17 04:45 Sodium 141 mEq/L (135-145) 11/04/17 04:45 Potassium 4.8 mEq/L (3.5-5.2) 11/04/17 04:45 Chloride 107 mEq/L (97-110) 11/04/17 04:45 Carbon Dioxide 21 mEq/l (22-31) L 11/04/17 04:45 Anion Gap 13 mEq/L (8-16) 11/04/17 04:45 BUN 17 mg/dL (7-23) 11/04/17 04:45 Creatinine 0.9 mg/dL (0.7-1.3) 11/04/17 04:45 Estimated GFR > 60 11/04/17 04:45 Glucose 90 mg/dL (70-100) 11/04/17 04:45 Calcium 9.2 mg/dL (8.5-10.4) 11/04/17 04:45 Troponin I < 0.012 ng/mL (0.000-0.034) 11/04/17 04:45 NT-Pro-B Natriuret Pep 53 pg/mL (0-125) 11/04/17 04:45 Visualized and Interpreted Chest x-ray results: Yes Chest X-Ray results: no infiltrate Assessment & Plan Assessment: 37 yo M w/ unspecified ILD presents with acute exacerbation. Plan: 1. Acute exacerbation of unspecified ILD - Clinically c/w viral trigger for exacerbation of unspecified ILD, possibly hypersensitivity pneumonitis. Patient started on Cellcept 1,000 mg BID 3 months ago after his most recent flare. - Admit to SDU for close monitoring - S/p methylpred 125 mg in ED; will continue 60 mg IV q6h for now - Duonebs QID + Albuterol q2h PRN - Discussed case with Dr. Cespedes - Will benefit from pulmonary consult 2. AHRF - Currently requiring 10 L/min via facemask; etiology as described above. D-dimer elevated, will need to rule out PE as well. - CTPE ordered for further evaluation - Respiratory PCR, procalcitonin Diet - Regular Code - Full Ppx - LMWH Dispo - Admit under inpatient status noting severity of hypoxia
--- NOTE | 2017-11-04 06:59 | EDPHY ---
H & P Stated Complaint: sob-spo2 70% Time Seen by Provider: 11/04/17 04:47 HPI/ROS: HPI The patient presents with shortness of breath and hypoxia, brought in by his from home. He has a longstanding history of interstitial lung disease of some sort. He is currently followed at [facility] and is taking CellCept. 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 [place] [address], checked his pulse ox just prior to arrival and it was 60%. As he has had a few days of cough, rhinorrhea which improved when he traveled to [place], [place]. However, over the last 2 days he is much worse with a dry hacking cough, rhinorrhea, myalgias, headache, chills. His and 2 kids are sick with a similar illness. REVIEW OF SYSTEMS Constitutional: No fever, no chills. Eyes: No discharge. ENT: No sore throat. Cardiovascular: No chest pain, no palpitations. Respiratory: See HPI Gastrointestinal: No abdominal pain, no vomiting. Genitourinary: No hematuria. Musculoskeletal: No back pain. Skin: No rashes. Neurological: No headache. PMHx: Chronic lung disease which has not been categorized, he has been seen at [facility] and the [facility], not on chronic oxygen supplementation Soc Hx: Lives [place] [address] with his family, going to be moving to [place] shortly PHYSICAL General Appearance: Alert, in respiratory distress Eyes: Pupils equal and round no pallor or injection ENT, Mouth: Mucous membranes moist Respiratory: There are retractions, he is speaking short sentences, there are rhonchorous breath sounds in all lung he Cardiovascular: Regular rate and rhythm Gastrointestinal: Abdomen is soft and non-tender, no masses, bowel sounds normal Neurological: A&O, moves all extremities Skin: Warm and dry, no rashes Musculoskeletal: Neck is supple non tender Extremities: symmetrical, full range of motion Psychiatric: Patient is oriented X 3, there is no agitation Source: Patient, Family, Old records Exam Limitations: No limitations - Personal History Current Tetanus Diphtheria and Acellular Pertussis (TDAP): Yes Tetanus Vaccine Date: 2014 - Medical/Surgical History Hx Asthma: Yes Hx Chronic Respiratory Disease: Yes Hx Diabetes: No Hx Cardiac Disease: No Hx Renal Disease: No Hx Cirrhosis: No Hx Alcoholism: No Hx HIV/AIDS: No Hx Splenectomy or Spleen Trauma: No Other PMH: resp disease. anxiety - Social History Smoking Status: Never smoked Constitutional: Initial Vital Signs Temperature (C) 37.1 C 11/04/17 04:55 Heart Rate 117 H 11/04/17 04:55 Respiratory Rate 40 H 11/04/17 04:55 Blood Pressure 133/74 H 11/04/17 04:55 O2 Sat (%) 70 L 11/04/17 04:55 O2 Delivery Mode Oxymizer O2 (L/minute) 10 Allergies/Adverse Reactions: levofloxacin [From Levaquin] Allergy (Verified 08/15/16 14:33) Rash Home Medications: Medication Instructions Recorded Ibuprofen [Motrin (*)] 200 mg PO DAILY PRN 04/03/17 Naproxen Sodium [Aleve 220 MG (*)] 220 mg PO DAILY PRN 04/03/17 predniSONE 60 mg PO DAILY #90 tab 04/05/17 Medical Decision Making - Diagnostics Imaging Results: Chest x-ray two view shows no infiltrate, no pleural effusion, interpreted by me , radiology interpretation is pending. CT angio of chest demonstrates no pulmonary embolism, lung changes that could be interstitial pneumonitis, discussed with Dr. Quesada of Radiology. Imaging: I viewed and interpreted images myself Differential Diagnosis: This is a 37-year-old male with history of chronic lung disease, cause unclear with inconclusive lung biopsy who presents from home with 48 hr of declining respiratory status with cough and rhinorrhea in the setting of several sick family members. Also recent travel to [place]. It seems that when he has exacerbation of his underlying pulmonary problem it is steroid responsive according to his . Differential diagnosis includes viral URI with interstitial lung disease, pneumonia, pulmonary embolism. In the emergency department, patient was immediately placed on face mask with improvement in his oxygenation. Nebs were given as well as Solu-Medrol. He improved with this though required face mask to keep his sats in the 90s. Labs were checked and were relatively unremarkable except for positive D-dimer. CT scan of the chest was performed. Given no infiltrate on chest x-ray, I will not start on antibiotics. I consulted with the hospitalist Dr. Rascon who will admit the patient to the Step-Down Unit. CT scan of chest was unremarkable. Critical Care Time: CRITICAL CARE Critical care time spent by me, Dr. Cespedes, exclusively with this patient was 30 minutes, exclusive of PA time and exclusive of procedures. The organ system at risk was respiratory and I gave supplemental oxygenation, nebulizer treatments, IV fluids, steroids to prevent worsening of the patients condition. - Data Points Laboratory Results: Laboratory Results 11/04/17 04:45 11/04/17 04:45 11/04/17 11/04/17 11/04/17 04:45 04:45 04:45 WBC RBC Hgb Hct MCV MCH MCHC RDW Plt Count MPV Neut % (Auto) Lymph % (Auto) [place] % (Auto) Eos % (Auto) Baso % (Auto) Nucleat RBC Rel Count Absolute Neuts (auto) Absolute Lymphs (auto) Absolute Monos (auto) Absolute Eos (auto) Absolute Basos (auto) Absolute Nucleated RBC Immature Gran % Immature Gran # D-Dimer 0.68 ug/mLFEU H ug/mLFEU (0.00-0.50) Sodium 141 mEq/L mEq/L (135-145) Potassium 4.8 mEq/L mEq/L (3.5-5.2) Chloride 107 mEq/L mEq/L (97-110) Carbon Dioxide 21 mEq/l L mEq/l (22-31) Anion Gap 13 mEq/L mEq/L (8-16) BUN 17 mg/dL mg/dL (7-23) Creatinine 0.9 mg/dL mg/dL (0.7-1.3) Estimated GFR > 60 Glucose 90 mg/dL mg/dL (70-100) Calcium 9.2 mg/dL mg/dL (8.5-10.4) Troponin I < 0.012 ng/mL ng/mL (0.000-0.034) NT-Pro-B Natriuret Pep 53 pg/mL pg/mL (0-125) Procalcitonin Pending 11/04/17 04:45 WBC 12.77 10^3/uL H 10^3/uL (3.80-9.50) RBC 5.69 10^6/uL 10^6/uL (4.40-6.38) Hgb 17.5 g/dL g/dL (13.7-17.5) Hct 49.4 % % (40.0-51.0) MCV 86.8 fL fL (81.5-99.8) MCH 30.8 pg pg (27.9-34.1) MCHC 35.4 g/dL g/dL (32.4-36.7) RDW 12.8 % % (11.5-15.2) Plt Count 247 10^3/uL 10^3/uL (150-400) MPV 9.7 fL fL (8.7-11.7) Neut % (Auto) 81.7 % H % (39.3-74.2) Lymph % (Auto) 10.5 % L % (15.0-45.0) [place] % (Auto) 6.2 % % (4.5-13.0) Eos % (Auto) 0.7 % % (0.6-7.6) Baso % (Auto) 0.5 % % (0.3-1.7) Nucleat RBC Rel Count 0.0 % % (0.0-0.2) Absolute Neuts (auto) 10.44 10^3/uL H 10^3/uL (1.70-6.50) Absolute Lymphs (auto) 1.34 10^3/uL 10^3/uL (1.00-3.00) Absolute Monos (auto) 0.79 10^3/uL 10^3/uL (0.30-0.80) Absolute Eos (auto) 0.09 10^3/uL 10^3/uL (0.03-0.40) Absolute Basos (auto) 0.06 10^3/uL 10^3/uL (0.02-0.10) Absolute Nucleated RBC 0.00 10^3/uL 10^3/uL (0-0.01) Immature Gran % 0.4 % % (0.0-1.1) Immature Gran # 0.05 10^3/uL 10^3/uL (0.00-0.10) D-Dimer Sodium Potassium Chloride Carbon Dioxide Anion Gap BUN Creatinine Estimated GFR Glucose Calcium Troponin I NT-Pro-B Natriuret Pep Procalcitonin Medications Given: Discontinued Medications Albuterol/Ipratropium (Duoneb) 3 ml IH EDNOW ONE Stop: 11/04/17 04:49 Last Admin: 11/04/17 04:55 Dose: 3 ml Sodium Chloride (Ns) 500 mls @ 1,000 mls/hr IV EDNOW ONE PRN Reason: Protocol Stop: 11/04/17 05:17 Last Admin: 11/04/17 04:55 Dose: 500 mls Methylprednisolone Sodium Succinate (Solu-Medrol) 125 mg IVP EDNOW ONE Stop: 11/04/17 04:49 Last Admin: 11/04/17 04:55 Dose: 125 mg Departure - Departure Disposition: [facility] Inpatient Acute Clinical Impression: Hypoxia, Chronic lung disease, Cough Condition: Fair
[2017-11-04] MEDS: IPRATROPIUM/ALBUTEROL 3 ML DEYVIAL IH SCH ×4 (09:10→21:58)
--- NOTE | 2017-11-04 09:23 | PDMN ---
Medical Necessity Medical necessity: GRG pulm disease: acute exacerbation of unspecified ILD. currently req. 10L/min via facemask, further monitoring, eval and tx needed anticipate > 2 midnights
[2017-11-04] MEDS: ENOXAPARIN 40 MG/0.4 ML SYR SC SCH (10:44)
[2017-11-04] MEDS ORDERED: methylPREDNISolone SOD SUCC 125 MG/2 ML VIAL IVP SCH (12:00)
--- NOTE | 2017-11-04 12:32 | GCON ---
[f rep st] CONSULTATION TRAFFIC SIGN ERECTION SUPERVISOR CONSULTATION DATE OF CONSULTATION: 11/04/2017 REASON FOR ADMISSION: Acute respiratory failure, interstitial lung disease, human metapneumovirus. HISTORY OF PRESENT ILLNESS: The patient is a very pleasant 37-year-old white male, well known to mys elf, with a past medical history of interstitial lung disease the etiology of which is unclear. He u nderwent fiberoptic bronchoscopy in the past and it was felt that he had cryptogenic organizing pneum onia. He has been followed by [facility] as of late, who were also unclear on the cause of his lung disease. Over the last several nights, he has noticed increasing breathlessness as well as hypo xemia. He has had cough and congestion for approximately 4 days. His daughters have been ill as jn edwards. He was brought to the emergency room for hypoxemia and was subsequently admitted. Per [employer], he was begun on CellCept 3 months ago after being tapered off prednisone. He early s held that approximately 2 days ago. Currently he feels somewhat improved. He is breathless with a ny form of exertion. He admits to a cough that is nonproductive. There is no chest pain, pleuritic- type chest pain or angina equivalent. No fever or night sweats. REVIEW OF SYSTEMS: A 10-point review of system was performed and was negative, except for what was l isted in HPI. ALLERGIES: Levaquin. PAST MEDICAL HISTORY: Significant for interstitial lung disease, the etiology of which is unclear, w ziaher this is hypersensitive pneumonitis versus cryptogenic organizing pneumonia, versus something e lse. SOCIAL HISTORY: Lifelong never smoker. No significant alcohol use. He is and has excellent family support. 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 He is plannin g on moving to [place] in approximately 2 weeks. PHYSICAL EXAM: VITAL SIGNS: Blood pressure is 115/73, pulse 92, respirations are 27, temperature is 36.9, oxygen saturation is 93% on 10 L Oxymizer. GENERAL: He is a well-developed, well-nourished, 37-year-old white male who is resting comfortably, on supplemental oxygen. HEENT: Eyes COLBY, EOMI. Throat shows no erythema or tonsillar hypertrophy. NECK: Supple. No cervical adenopathy. HEART: Regular rate and rhythm, without murmurs, rubs, or gallops. LUNGS: A few bibasilar crackles, but n o wheeze. ABDOMEN: Soft, nontender. Bowel sounds are present. EXTREMITIES: No clubbing, cyanosis , or edema. LABORATORIES: White count is 12.7, hemoglobin is 17, hematocrit 49, platelet count is 247. Sodium 1 41, potassium 4.8, chloride 107, CO2 is 21, BUN is 17, creatinine 0.9, glucose is 90. Respiratory pa tiffanie reveals human rhinovirus/enterovirus. IMAGING: CT angiogram of the chest dated 11/04/2017 shows no evidence of PE, but interstitial lung d isease has not changed since CT scan of the chest 8 months prior. IMPRESSION: 1. Acute respiratory failure secondary to viral lung infection and interstitial lung disease. 2. Interstitial lung disease, etiology of which is unclear whether this is hypersensitivity pneumoni tis versus cryptogenic organizing pneumonia, versus possible sarcoidosis. 3. Viral pneumonitis with human metapneumovirus. RECOMMENDATIONS: 1. Agree with excessive supplemental oxygen. 2. Frequent nebulized treatments. 3. DVT and PE prophylaxis. 4. Stress ulcer prophylaxis. 5. Agree with Solu-Medrol. Will increase the dose to 125 q.6. Thank you very much. /[id number]/MODL
--- NOTE | 2017-11-04 12:46 | HOSPPROG ---
Hospitalist Progress Note Assessment/Plan: 37 yo M w/ unspecified ILD presents with acute exacerbation. Acute on chronic hypoxemic respiratory failure with acute exacerbation of unspecified ILD 2/2 viral URI - Currently requiring 10 L/min via facemask; CTA neg for PE. Unclear etiology of ILD, possibly hypersensitivity pneumonitis, followed at [facility]. Patient started on Cellcept 1,000 mg BID 3 months ago after his most recent flare, held for past [address] Morris - Cont IV Solumedrol, increased to 126 mg q6h per pulm - Duonebs QID + Albuterol q2h PRN - wean O2 as able, may require home O2 [place] 9K [place] elevation Diet - Regular Code - Full Ppx - LMWH Dispo - cont inpt, ICU status Subjective: Pt doing ok, feels a little better. Non-productive cough is unchanged. No CP or SOB. No fevers. He does not use O2 at home. Has used intermittent steroids over past 2 yrs. Objective: Vital Signs Temp Pulse Resp BP Pulse Ox 36.9 C 92 27 H 115/73 93 11/04/17 11:45 11/04/17 11:45 11/04/17 11:45 11/04/17 11:45 11/04/17 11:45 Microbiology 11/04/17 07:05 Respiratory Panel (PCR) - Final Nasal, Sinus - Swab Human Rhinovirus/Enterovirus 11/03/17 11/04/17 11/05/17 05:59 05:59 05:59 Intake Total 1999 Balance 1999 - Physical Exam Constitutional: no apparent distress Eyes: PERRL Ears, Nose, Mouth, Throat: moist mucous membranes Cardiovascular: regular rate and rhythym Respiratory: no respiratory distress, reduced air movement, expiratory wheeze Gastrointestinal: normoactive bowel sounds, soft, non-tender abdomen Skin: warm Musculoskeletal: full muscle strength Neurologic: AAOx3 Psychiatric: interacting appropriately ICD10 Worksheet Patient Problems: Problems Problem Status Onset Chronic lung disease Acute Cough Acute Hypoxia Acute Hypoxemia Acute NSTEMI (non-ST elevated myocardial infarction) Acute
[2017-11-04] MEDS: methylPREDNISolone SOD SUCC 125 MG/2 ML VIAL IVP SCH ×2 (18:02→23:46)
[2017-11-05] MEDS: IPRATROPIUM/ALBUTEROL 3 ML DEYVIAL IH SCH ×4 (05:45→21:27)
[2017-11-05] MEDS: methylPREDNISolone SOD SUCC 125 MG/2 ML VIAL IVP SCH ×3 (05:53→21:04)
[2017-11-05] MEDS: ENOXAPARIN 40 MG/0.4 ML SYR SC SCH (08:00)
--- NOTE | 2017-11-05 08:56 | PDINTPN ---
Playground Director Progress Note Assessment/Plan: Assessment/plan: * Interstitial lung disease-unclear etiology. Possible hypersensitivity pneumonitis. Was previously on CellCept prior to admission. * Viral pneumonitis-human metapneumovirus * Acute respiratory failure-improved -continue high-dose steroids * PTOT * Nutrition-adequate * Disposition-will transfer to medical surgical floor Subjective: Sitting up in bed. Resting comfortably. Breathing easily. Still requiring supplemental oxygen. Objective: Vital Signs Temp Pulse Resp BP Pulse Ox 36.5 C 67 16 139/58 H 93 11/05/17 08:14 11/05/17 08:14 11/05/17 08:14 11/05/17 08:14 11/05/17 08:14 Microbiology 11/04/17 07:05 Respiratory Panel (PCR) - Final Nasal, Sinus - Swab Human Rhinovirus/Enterovirus 11/04/17 11/05/17 11/06/17 05:59 05:59 05:59 Intake Total 4200 Output Total 400 Balance 3800 - Time Spent With Patient Time Spent With Patient: 35 min of time spent with patient, over 1/2 involved with coordination of care or counseling Physical Exam - Physical Exam General Appearance: alert, no apparent distress EENT: PERRL/EOMI, normal ENT inspection, pharynx normal, TMs normal Neck: non-tender, full range of motion, supple, normal inspection Respiratory: crackles (Bibasilar), No respiratory distress, No wheezing Cardiac/Chest: normal peripheral pulses, regular rate, rhythm Peripheral Pulses: 2+: carotid (R), carotid (L), femoral (R), femoral (L), dorsalis-pedis (R), dorsalis-pedis (L) Abdomen: normal bowel sounds, non-tender, soft Male Genitalia: deferred Rectal: deferred Skin: normal color, warm/dry Extremities: normal range of motion, non-tender, normal inspection, normal capillary refill Neuro/Psych: no motor/sensory deficits, alert, normal mood/affect, oriented x 3 ICD10 Worksheet Patient Problems: Problems Problem Status Onset Chronic lung disease Acute Cough Acute Hypoxia Acute Hypoxemia Acute NSTEMI (non-ST elevated myocardial infarction) Acute
--- NOTE | 2017-11-05 09:43 | HOSPPROG ---
Hospitalist Progress Note Assessment/Plan: 37 yo M w/ unspecified ILD presents with acute exacerbation. Acute on chronic hypoxemic respiratory failure with acute exacerbation of unspecified ILD 2/2 viral URI - 10 LPM --> 4 LPM; CTA neg for PE. Unclear etiology of ILD, possibly hypersensitivity pneumonitis, followed at [facility]. Patient started on Cellcept 1,000 mg BID 3 months ago after his most recent flare, held for past [address]. [address] Morris - Will wean Solumedrol to 60 q8h - cont Duonebs QID + Albuterol q2h PRN - wean O2 as able, may require home O2 as lives at 9K feet elevation Diet - Regular Code - Full Ppx - LMWH Dispo - cont inpt, transfer to med/surg Subjective: Pt feeling a little better, but still coughing quite a bit. Less O2 needs today. Slept well. No fevers. Denies CP or SOB. Objective: Vital Signs Temp Pulse Resp BP Pulse Ox 36.5 C 67 16 139/58 H 93 11/05/17 08:14 11/05/17 08:14 11/05/17 08:14 11/05/17 08:14 11/05/17 08:14 Microbiology 11/04/17 07:05 Respiratory Panel (PCR) - Final Nasal, Sinus - Swab Human Rhinovirus/Enterovirus 11/04/17 11/05/17 11/06/17 05:59 05:59 05:59 Intake Total 4200 Output Total 400 Balance 3800 - Physical Exam Constitutional: no apparent distress Eyes: PERRL Ears, Nose, Mouth, Throat: moist mucous membranes Cardiovascular: regular rate and rhythym Respiratory: no respiratory distress, clear to auscultation Gastrointestinal: normoactive bowel sounds, soft, non-tender abdomen Skin: warm Musculoskeletal: full muscle strength Neurologic: AAOx3 Psychiatric: interacting appropriately ICD10 Worksheet Patient Problems: Problems Problem Status Onset Chronic lung disease Acute Cough Acute Hypoxia Acute Hypoxemia Acute NSTEMI (non-ST elevated myocardial infarction) Acute
--- NOTE | 2017-11-05 09:52 | ASMTCASEMG ---
Living Arrangements What is your living Answers: With Spouse arrangement? Who do you live with? Type Of Residence What kind of residence do Answers: House you live in? Discharge Plan Comments Coordination Status Comments Notes: Patient is a 37yo male who was admitted for an acute exacerbation of unspecified ILD. He has a long history of lung disease, possibly HP but unclear after biopsy at [facility]. He has frequent flares requiring hospitalization. No therapies ordered at this time. Patient lives in [place], [place]. D/C plan TBD. CM will follow. Date Signed: 11/05/2017 09:51 AM Electronically Signed By:Christie Riggins LCSW
[2017-11-06] MEDS: methylPREDNISolone SOD SUCC 125 MG/2 ML VIAL IVP SCH (05:46)
[2017-11-06] MEDS: IPRATROPIUM/ALBUTEROL 3 ML DEYVIAL IH SCH ×2 (06:01→10:36)
--- NOTE | 2017-11-06 08:45 | SOAPPROG ---
SOAP Progress Note Assessment/Plan: Assessment/plan: * Interstitial lung disease-unclear etiology. Possible hypersensitivity pneumonitis. Was previously on CellCept prior to admission. * Viral pneumonitis-human metapneumovirus * Acute respiratory failure-continues to improve -continue high-dose steroids * PTOT * Nutrition-adequate * Disposition-home soon Subjective: Sitting up in bed. Resting comfortably. Breathing easier. Objective: Vital Signs Temp Pulse Resp BP Pulse Ox 36.7 C 101 H 13 114/63 95 11/06/17 03:54 11/06/17 03:54 11/06/17 03:54 11/06/17 03:54 11/06/17 03:54 11/05/17 11/06/17 11/07/17 05:59 05:59 05:59 Intake Total 4200 3900 Output Total 400 Balance 3800 3900 - Time Spent With Patient Time Spent With Patient: 25 min of time spent with patient, over 1/2 involved with coordination of care counseling Physical Exam - Physical Exam General Appearance: WD/WN, alert, no apparent distress EENT: PERRL/EOMI, normal ENT inspection, pharynx normal, TMs normal Neck: non-tender, full range of motion, supple, normal inspection Respiratory: crackles (Scattered), No respiratory distress, No wheezing Cardiac/Chest: normal peripheral pulses, regular rate, rhythm Peripheral Pulses: 2+: carotid (R), carotid (L), femoral (R), femoral (L), dorsalis-pedis (R), dorsalis-pedis (L) Abdomen: normal bowel sounds, non-tender, soft Male Genitalia: deferred Rectal: deferred Skin: normal color, warm/dry Extremities: normal range of motion, non-tender, normal inspection, normal capillary refill Neuro/Psych: no motor/sensory deficits, alert, normal mood/affect, oriented x 3 ICD10 Worksheet Patient Problems: Problems Problem Status Onset Chronic lung disease Acute Cough Acute Hypoxia Acute Hypoxemia Acute NSTEMI (non-ST elevated myocardial infarction) Acute
[2017-11-06] MEDS ORDERED: predniSONE 20 MG TAB PO SCH (09:00)
[2017-11-06] MEDS ORDERED: guaiFENesin 600 MG TAB.ER PO SCH (09:15)
--- NOTE | 2017-11-06 09:33 | PDHOMEO2F ---
Home Oxygen Face to Face Home Orders: I certify that a physician or a nurse practitioner or physician's banking assistant has had a [id number] encounter with this patient on the date of this order due to the diagnosis listed, which relates to the primary reason the patient requires home oxygen. Alternative treatments have been tried, or considered, and deemed ineffective. It is anticipated that supplemental oxygen will result in improvement with treatment. Home oxygen qualifying diagnosis: Interstitial lung disease, viral URI SpO2 on room air (%): 87 Frequency of home oxygen needed: continuous Home oxygen liters per minute: 2-3 LPM Home oxygen delivery device: nasal cannula Concentrator: Yes E-tanks for mobility and back up: Yes If ordering portable O2, is the patient mobile in the home?: Yes I certify that, based on these findings, the home oxygen is medically necessary for this patient for the following length of time. Length of time home oxygen needed: 1 month
[2017-11-06] MEDS: ENOXAPARIN 40 MG/0.4 ML SYR SC SCH (09:36)
[2017-11-06 09:41] VITALS: BP 114/68
--- NOTE | 2017-11-08 05:02 | GDS ---
[f rep st] DISCHARGE SUMMARY DISCHARGE DIAGNOSES: 1. Acute hypoxemic respiratory failure with acute exacerbation of interstitial lung disease secondar y to viral upper respiratory infection. 2. Viral upper respiratory infection secondary to rhino/enterovirus. 3. Unspecified interstitial lung disease, possibly hypersensitivity pneumonitis, followed at [facility]. 4. Chronic immunosuppression on CellCept. CONSULTANTS: Wilson Morris DO, thermostat repairer. HISTORY: For details, please see the history and physical dated November 04, 2017. In brief, the patient is a 37-year-old male with a history of interstitial lung disease, possibly hypersensitivity pneumoni tis, though etiology is unclear after biopsy at [facility]. He presented to the emerge ncy department with shortness of breath, was found to be hypoxemic. Admitted to the hospital for fur ther management. HOSPITAL COURSE: Patient admitted to the step-down unit. On presentation, he was severely hypoxic r equiring 10 L/minute of oxygen by face mask. He was treated with high-dose IV methylprednisolone denver ng with scheduled DuoNeb and p.r.n. albuterol nebs. A respiratory viral panel was positive for rhino virus/enterovirus. He was also started on Mucinex and supportive care. His condition improved. He was able to wean down to 2 L of oxygen. He was transitioned to oral prednisone prior to discharge. DISPOSITION: Patient was discharged home in stable condition. FOLLOWUP: Dr. Brown at [facility] within 5-7 days. DISCHARGE MEDICATIONS: Please see [facility] for completed outpatient medication list. New medication s on discharge include: Prednisone 60 mg p.o. daily for 2 weeks and further taper direction per Dr. Brown. He is advised to hold his CellCept while on high-dose steroids and resume this at the direction of his pulmonologis t at [facility]. /[id number]/MODL
== END 2017-11-06 15:26 | disposition home or self-care (01) | DRG 196 ==
LOC: F2N 08:34
PROVIDERS: ADMIT Student in an Organized Health Care Education/Training Program; ATTEND Hospitalist
DX: J67.9 Hypersensitivity pneumonitis due to unspecified organic dust (principal); J84.116 Cryptogenic organizing pneumonia; J96.01 Acute respiratory failure with hypoxia; J06.9 Acute upper respiratory infection, unspecified; J84.9 Interstitial pulmonary disease, unspecified; B34.8 Other viral infections of unspecified site; B34.1 Enterovirus infection, unspecified; E86.9 Volume depletion, unspecified; F41.9 Anxiety disorder, unspecified; Z79.899 Other long term (current) drug therapy
CPT/HCPCS: 96374; J1650; J2930; J7512; Q9967